=== PATIENT | female | born 1975 | race Hispanic/Latino ===

== ENCOUNTER 2025-05-07 17:50 | Inpatient (IN) | payer BC ==
[~2025-05-07] VITALS: Ht 157.5 cm; Wt 97.5 kg
[2025-05-07 18:24] LABS: IMMATURE GRANULOCYTE ABSOLUTE 0.15 K/uL (0-1); NUCLEATED RED BLOOD CELLS 0.0 % (0.0-0.19); PLATELET COUNT (AUTO) 261 K/uL (130-400); RED BLOOD CELL COUNT(AUTO) 4.02 MIL/uL (4.00-5.50); RED CELL DISTRIBUTION WIDTH 13.4 % (11.0-15.5); WHITE BLOOD COUNT (AUTO) 18.4 K/uL (4.8-10.8)
[2025-05-07 18:31] LABS: CREATININE 0.8 mg/dL (0.5-1.0); GLOMERULAR FILTR. RATE CALC 89.0 mL/min (>90); GLUCOSE,RANDOM 196.0 mg/dL (70-105); SODIUM SERUM 136.0 mmol/L (136-145); UREA NITROGEN, BLOOD 9.0 mg/dL (7-18)
--- NOTE | 2025-05-07 18:55 | HMCIMG ---
EXAM: CR Chest, 1 View. CLINICAL HISTORY: sob/cough r/o pna COMPARISON: None provided. FINDINGS: Multifocal pneumonia throughout the left lung and within the mid to lower right lung. No pleural effusion or pneumothorax. Mild cardiomegaly. Mild central pulmonary vascular congestion. IMPRESSION: 1. Multifocal pneumonia in the left lung and mid to lower right lung. /Dawson
[2025-05-07 18:57] VITALS: PULSE 89; RESP 17
--- NOTE | 2025-05-07 19:01 | ERN ---
General Chief Complaint: Cough Stated Complaint: COUGH Time Seen by MD: 17:54 Time Seen by Midlevel: 17:54 Source: patient History of Present Illness Initial Comments The patient is a 50-year-old female with no significant past medical history presenting to the emergency department for evaluation of cough and shortness of breath that has been ongoing for a proximally one week. Her symptoms initially started with abdominal pain, diarrhea, and a sore throat. She was diagnosed with strep and started on Augmentin two days ago. Today she reports feeling worse so she decided to report to the freestanding ER where she was found to have bilateral pneumonia. She was given an unknown antibiotic and steroid and was urged to be admitted however the patient decided to leave against medical advice. Her daughter convinced her to report to the ER after being discharged so she presented here for further evaluation. Allergies: Coded Allergies: No Known Drug Allergies (Unverified Allergy, Unknown, 05/07/25) Past Medical History Past Medical History: No Pertinent History Past Surgical History: Unknown ROS Dictation CONSTITUTIONAL: Negative except for HPI HEAD/FACE: Negative except for HPI EENT: Negative except for HPI RESPIRATORY: Negative except for HPI GASTROINTESTINAL/ABDOMINAL: Negative except for HPI GENITOURINARY: Negative except for HPI MUSCULOSKELETAL: Negative except for HPI INTEGUMENTARY: Negative except for HPI NEUROLOGICAL/PSYCH: Negative except for HPI HEMATOLOGIC/LYMPHATIC: Negative except for HPI All Systems Negative, Except as noted above. 13 point review of systems assessed and all negative except for above. Physical Exam Physical Exam Dictation Vital Signs reviewed General Appearance: Alert, oriented x 3, no acute distress, well developed, nourished. Head and Face: non-traumatic. Eyes: PERRL, pink conjunctivas, eyelid no trauma, anterior chamber with arcus senilis. Ears: Pinnas intact and no signs of trauma or erythema ear canals clear and no discharge TM no erythema Nose: No discharge, no bleeding. Oropharynx: Mouth normal, tongue pink, pharynx clear,no erythema, tonsils no exudates, no abscesses noted, mucous membrane moist Neck: Supple, non-tender, no thyromegaly, no masses, no JVD, no bruits Breast:Deferred Chest:No tenderness, no crepitus, no paradoxical movement, no retractions Lungs:Clear, well-ventilated, symmetric, no rales, no wheezing, no rhonchi, no stridor, good breath sounds bilaterally Heart: Regular rate, regular rhythm, no murmur, no gallops Vascular: no peripheral edema, Abdomen: Soft, positive bowel sounds, nondistended, no guarding, nontender, no rebound, no masses no hepatomegaly, no splenomegaly, no Gupta's sign, no hernias. Rectal: Deferred Genital: Deferred Neurological: Normal speech, motor function intact, sensory function intact Musculoskeletal: Neck nontender, full range of motion, back nontender, full range of motion, Extremities: nontender, full range of motion Skin: Color pink, dry, no turgor, no rash, no lacerations, no abrasions, no contusions. Lymphatic: Deferred Results Laboratory and Microbiology Lab and Micro Result Laboratory Tests Test 05/07/25 18:15 White Blood Count 18.4 K/uL (4.8-10.8) H Red Blood Count 4.02 MIL/uL (4.00-5.50) Hemoglobin 11.3 g/dL (12.0-16.0) L Hematocrit 33.9 % (36-48) L Mean Corpuscular Volume 84.3 fL (79-99) Mean Corpuscular Hemoglobin 28.1 pg (27.0-33.0) Mean Corpuscular Hemoglobin Concent 33.3 g/dL (32.0-36.0) Red Cell Distribution Width 13.4 % (11.0-15.5) Platelet Count 261 K/uL (130-400) Mean Platelet Volume 10.7 fL (7.5-10.5) H Immature Granulocyte % (Auto) 0.8 % (0-1) Neutrophils (%) (Auto) 96.1 % (40.0-77.0) H Lymphocytes (%) (Auto) 2.2 % (21.0-51.0) L Monocytes (%) (Auto) 0.5 % (3.0-13.0) L Eosinophils (%) (Auto) 0.2 % (0.0-8.0) Basophils (%) (Auto) 0.2 % (0.0-5.0) Neutrophils # (Auto) 17.6 K/uL (1.8-7.7) H Lymphocytes # (Auto) 0.4 K/uL (1.0-4.8) L Monocytes # (Auto) 0.1 K/uL (0.1-1.0) Eosinophils # (Auto) 0.04 K/uL (0.00-0.70) Basophils # (Auto) 0.04 K/uL (0.00-0.20) Absolute Immature Granulocyte (auto 0.15 K/uL (0-1) Nucleated Red Blood Cells 0.0 % (0.0-0.19) White Cell Morphology Comment See comments Sodium Level 136 mmol/L (136-145) Potassium Level 3.6 mmol/L (3.5-5.1) Chloride Level 99 mmol/L (101-111) L Carbon Dioxide Level 29 mmol/L (21-32) Blood Urea Nitrogen 9 mg/dL (7-18) Creatinine 0.8 mg/dL (0.5-1.0) Glomerular Filtration Rate Calc 89 mL/min (>90) Random Glucose 196 mg/dL (70-105) H Lactic Acid Level 1.3 mmol/L (0.8-2.5) Total Calcium 8.6 mg/dL (8.5-10.1) Labs Reviewed?: Yes MDM MDM: Differential diagnosis: Pneumonia, failure of outpatient therapy, pleural effusion Rationale: Tests considered and ordered secondary to shared decision making include: Previous outside records reviewed: Old ER visits. Risk of complication and/or morbidity or mortality of patient management: None Medications-Per medication reconciliation Need for hospitalization: Patient does meet criteria for hospitalization. Need for emergency major/minor surgery: No There are no social concerns with this patient. Prescription drug management Prescriptions will include symptomatic care Patient's prior external medical records from other ER visits were reviewed by me as indicated. Prior testing and results from previous visits were reviewed. Prior tests were taken into account with medical decision making and resource utilization, independent historian/historians were used to obtain complete medical history. I independently interpreted the test that were performed, results were reviewed by me and considered findings on radiology if ordered. Medical management and examination interpretation discussions were had by me with other qualified healthcare professionals as indicated for the patient's care. ED Course Orders Procedure Category Date Status Time Cbc With Differential LAB 05/07/25 Complete 18:03 Basic Metabolic Panel LAB 05/07/25 Complete 18:03 Lactic Acid LAB 05/07/25 Complete 18:03 Chest 1vw RAD 05/07/25 Resulted 18:03 Ceftriaxone 1g Vial PHA 05/07/25 In Process (Rocephine 1g Inj) 19:00 Blood Cult ADRIAN 05/07/25 Logged 18:42 Ipratropium/Albuterol PHA 05/07/25 In Process Neb (Duoneb) 19:00 Current Medications Medications (Trade) Dose Ordered Sig/Emely Route PRN Reason Start Time Stop Time Status Last Admin Dose Admin Albuterol (DUOneb) 1 UDVIAL ONCE ONCE IH 05/07/25 19:00 05/07/25 19:01 05/07/25 18:57 Ceftriaxone Sodium (ROCEphine 1G INJ) 1 gm ONCE ONCE IVPB 05/07/25 19:00 05/07/25 19:01 Vital Signs Date Time Temp Pulse Resp B/P (MAP) Pulse Ox O2 Delivery O2 Flow Rate FiO2 05/07/25 18:46 97.3 94 20 115/60 94 Room Air* 0 21 05/07/25 17:54 98.6 101 18 128/73 98 Nasal Cannula 0 DX & DISP Disposition: Inpatient Departure Impression: Primary Impression: Bilateral pneumonia Additional Impressions: Leukocytosis, Failure of outpatient treatment Condition: Stable Referrals: SELF,REFERRAL (PCP) Time of Disposition: 19:01 I have reviewed the case, and I agree with, Diagnosis and Plan I performed the substantive portion of the visit. I have reviewed and personally made and approve the management plan that is documented in the note by myself or the CHETNA. I acknowledge for responsibility for the patient's management plan. MAZIN DOUGLAS May 07, 2025 19:01
--- NOTE | 2025-05-07 19:31 | HP ---
[facility] HISTORY AND PHYSICAL Date of Service: May 07, 2025 Time of Service: 19:17 PCP: Self-referral HISTORY OF PRESENT ILLNESS: This is a 50-year-old female with no pertinent medical history who presents to the ED for complaints of dry cough , fever and shortness of breaths which started two days ago. Patient states her condition started one week ago having symptoms of diarrhea, and headache which she went to see her PCP and was prescribed with Zofran, omeprazole, nystatin and Augmentin q.12 for seven days and patient reports she started feeling better however two days ago he noticed having dry cough, fever and chills last night and shortness of breath today.Patient reports she went to a free standing ER and was given steroids shot and IVF and IV antibiotic and recommended for admission and as per patient she refused and decided to go home .On their way home she still feel the same and maurice garza convinced her to get admitted so she decided to come to this ER facility ,thus prompted this admission. Seen and examined patient in the ER awake,alert and coherent ,in no apparent distress.Patient denies chest pain,palpitation,nausea,vomiting and abdominal pain. Latest vital signs temperature 97.3, heart rate 89, blood pressure 115/60 saturation 94% on room air. Labs: WBC 18, hemoglobin 11, hematocrit 33 platelet count 261. Chloride 99, random glucose 196 lactic acid 1.3 the rest of the chemistries normal. Chest x-ray result revealed multifocal pneumonia in the left lung and mid to lower right lung. While in the ER patient received albuterol and Rocephin 1 g IV. We will admit patient for further medical management. REVIEW OF SYSTEMS CONSTITUTIONAL: Denies fevers, chills, or night sweats. No unintentional weight loss reported. NEUROLOGICAL: Denies headache, amaurosis fugax, motor weakness, sensory deficit, vertigo/spinning sensation, gait abnormalities, or tremors. ENT: No hearing loss, otalgia, otorrhea, rhinitis, rhinorrhea, hoarseness, or sore throat. CARDIOVASCULAR: Denies any exertional angina, dyspnea on exertion, orthopnea, paroxysmal nocturnal dyspnea, palpitations, life-threatening arrhythmias, claudication. PULMONARY: Dry cough and shortness of breaths Deniesphlegm/sputum, hemoptysis, pleuritic chest pain. SLEEP: Denies morning headaches, daytime somnolence or napping. Denies difficulty falling asleep, staying asleep, waking from sleep. Denies knowledge of snoring. GASTROINTESTINAL: Denies any type of dysphagia to either liquids or solids. Denies nausea, vomiting, pyrosis, early satiety, abdominal pain, diarrhea, constipation, or changes in stool consistency or caliber. Denies coffee-ground emesis, hematemesis, hematochezia, or melanotic stools. GENITOURINARY: Denies frequency, urgency, nocturia, hematuria or incontinence (Storage/Irritative symptoms.) Low urinary stream, straining to void, urinary intermittency or hesitancy, splitting of the voiding stream, terminal dribbling. ENDOCRINOLOGIC: Denies polyuria, polydipsia, polyphagia or heat/cold intolerances. HEMATOLOGIC: Denies thrombophilia/previous clots, or coagulopathy/bleeding disorders. ONCOLOGIC: Denies personal history of malignancy. DERMATOLOGIC: Denies rashes or pruritus. PSYCHIATRIC: Denies any suicidal or homicidal ideation. Denies hallucinations. PAST MEDICAL HISTORY: [ Patient denies] PAST SURGICAL HISTORY: [ Cholecystectomy] PAST SOCIAL HISTORY: [ Patient lives with daughter. Patient denies cigarette and recreational drug use admits to drinking two glass of mixed drinks per month ] FAMILY HISTORY: [Noncontributory ] Coded Allergies: No Known Drug Allergies (Unverified Allergy, Unknown, 05/07/25) PHYSICAL EXAM GENERAL APPEARANCE: The patient is awake, alert, and oriented, in no acute cardiopulmonary distress. NEUROLOGICAL: Cranial nerves II-XII grossly intact. Motor is 5/5 in bilateral upper and lower extremities proximal to distal. No sensory deficits. HEENT: Face is symmetric. Pupils are equal and reactive. Extraocular movements are intact. NECK: Supple. No JVD. No thyromegaly. No submental, submandibular, pre- /postauricular, occipital or supraclavicular lymphadenopathy. CHEST: Normal chest expansion. No Telemetry. LUNGS: Absence of any rales, rhonchi or any wheezing. CARDIOVASCULAR: Regular. S1 and S2 normal. No appreciable rubs, murmurs or gallops. ABDOMEN: Soft, nontender, and nondistended. There is no rebound, voluntary guarding, or rigidity. : Deferred. No Leija. EXTREMITIES: Non-edematous and not cyanotic. No clubbing. Good capillary refill. SKIN: No skin breakdown. Vital Sign (Last 24 Hours) 05/07/25 05/07/25 18:46 18:57 Temp 97.3 Pulse 89 Resp 17 B/P (MAP) 115/60 Pulse Ox 94 O2 Delivery Room Air* O2 Flow Rate 0 FiO2 21 LABS: Laboratory: Test 05/07/25 18:15 Range/Units White Blood Count 18.4 H 4.8-10.8 K/uL Red Blood Count 4.02 4.00-5.50 MIL/uL Hemoglobin 11.3 L 12.0-16.0 g/dL Hematocrit 33.9 L 36-48 % Mean Corpuscular Volume 84.3 79-99 fL Mean Corpuscular Hemoglobin 28.1 27.0-33.0 pg Mean Corpuscular Hemoglobin Concent 33.3 32.0-36.0 g/dL Red Cell Distribution Width 13.4 11.0-15.5 % Platelet Count 261 130-400 K/uL Mean Platelet Volume 10.7 H 7.5-10.5 fL Immature Granulocyte % (Auto) 0.8 0-1 % Neutrophils (%) (Auto) 96.1 H 40.0-77.0 % Lymphocytes (%) (Auto) 2.2 L 21.0-51.0 % Monocytes (%) (Auto) 0.5 L 3.0-13.0 % Eosinophils (%) (Auto) 0.2 0.0-8.0 % Basophils (%) (Auto) 0.2 0.0-5.0 % Neutrophils # (Auto) 17.6 H 1.8-7.7 K/uL Lymphocytes # (Auto) 0.4 L 1.0-4.8 K/uL Monocytes # (Auto) 0.1 0.1-1.0 K/uL Eosinophils # (Auto) 0.04 0.00-0.70 K/uL Basophils # (Auto) 0.04 0.00-0.20 K/uL Absolute Immature Granulocyte (auto 0.15 0-1 K/uL Nucleated Red Blood Cells 0.0 0.0-0.19 % White Cell Morphology Comment See comments Sodium Level 136 136-145 mmol/L Potassium Level 3.6 3.5-5.1 mmol/L Chloride Level 99 L 101-111 mmol/L Carbon Dioxide Level 29 21-32 mmol/L Blood Urea Nitrogen 9 7-18 mg/dL Creatinine 0.8 0.5-1.0 mg/dL Glomerular Filtration Rate Calc 89 >90 mL/min Random Glucose 196 H 70-105 mg/dL Lactic Acid Level 1.3 0.8-2.5 mmol/L Total Calcium 8.6 8.5-10.1 mg/dL DIAGNOSTICS / RADIOLOGY: [ ] ASSESSMENT: Community-acquired pneumonia POA Acute leukocytosis POA Hyperglycemia POA Acute normocytic normochromic anemia POA PLAN: We will admit patient in medical surgical We will start on regular diet We will start on Rocephin IV and azithromycin IV for broad-spectrum coverage We will start on famotidine 20 mg p.o. b.i.d. for GI prophylaxis We will replace electrolytes as needed per protocol May give DuoNeb treatment p.r.n. cough and shortness of breaths We will add prn medication for fever,pain,cough , nausea and vomiting We will request labs in am We will follow up blood culture result We will request urinalysis Further orders to follow depending on above results Case discussed with attending physician and came up with above treatment and plan of care. ADVANCED CARE PLANNING 1. Which of the following were discussed? Hospice Care - No Therapeutic options - Yes Advance Directives - No Other discussions - 2. Discussed with who? Patient 3. Voluntary nature of this service was explained to the patient? Yes 4. Amount of time spent - __20 5. Reviewed by Physician? (if this service was performed by NPP) Yes Patient seen and examined by me. Agree with note by MECHANICAL DRAWING TEACHER SEE ADDITIONAL ORDERS PER CHART DISCUSSED WITH NURSING STAFF MARIAN LIMON ACID OPERATOR May 07, 2025 19:31
[2025-05-07 19:58] LABS: APPEARANCE,URINE CLEAR (CLEAR); GLUCOSE, URINE (UA) NEGATIVE (NEGATIVE); LEUKOCYTE ESTERASE ,URINE 75 Leu/uL (NEGATIVE); NITRATE,URINE NEGATIVE (NEGATIVE); OCCULT BLOOD,URINE +- (TRACE) (NEGATIVE)
[2025-05-07 20:04] LABS: ADD UA MICROSCOPIC YES
[2025-05-07] MEDS: FAMOTIDINE 20MG TAB PO SCH (20:06)
[2025-05-07 20:10] LABS: SQUAMOUS EPITHELIAL CELL,UR RARE /HPF (0-2)
[2025-05-07 22:26] VITALS: PULSE 84; RESP 18; O2SAT 97
[2025-05-07 22:29] VITALS: PULSE 86; RESP 18
[2025-05-07 22:55] VITALS: BP 130/73; PULSE 93; RESP 18; TEMP 98.5
[2025-05-08] VITALS (16 sets, daily range): BP systolic 112–143; BP diastolic 53–91; PULSE 83–113; RESP 16–20; TEMP 97.7–98.5; O2SAT 93–98
[2025-05-08] MEDS: AZITHROMYCIN 500MG+NS 250ML 250 ML IV SCH (00:50)
[2025-05-08 05:28] LABS: IMMATURE GRANULOCYTE ABSOLUTE 0.06 K/uL (0-1); NUCLEATED RED BLOOD CELLS 0.0 % (0.0-0.19); PLATELET COUNT (AUTO) 252 K/uL (130-400); RED BLOOD CELL COUNT(AUTO) 3.69 MIL/uL (4.00-5.50); RED CELL DISTRIBUTION WIDTH 13.6 % (11.0-15.5); WHITE BLOOD COUNT (AUTO) 14.2 K/uL (4.8-10.8)
[2025-05-08 06:02] LABS: ASPARTATE AMINOTRANSFERASE 23.0 U/L (10-37); CREATININE 0.7 mg/dL (0.5-1.0); GLOMERULAR FILTR. RATE CALC 104.0 mL/min (>90); GLUCOSE,RANDOM 177.0 mg/dL (70-105); SODIUM SERUM 138.0 mmol/L (136-145); TOTAL PROTEIN, SERUM 6.6 g/dL (6.0-8.3); UREA NITROGEN, BLOOD 10.0 mg/dL (7-18)
--- NOTE | 2025-05-08 11:25 | NUR ---
DCP: HOME Pt currently lives with dgt Sylvia Obrien [phone]. pt does not have any DME, home health, or provider services. Pt is able to complete ADLs independently. PCP is Dr. Keiko Reyes and uses [facility] for any RX needs. At [place] pt will want to go home and family can assist with transportation. Addendum: 05/08/25 at 1128 by KIRAN SNYDER SS Amended: Links added.
[2025-05-08] MEDS: guaiFENesin-DM 200/20MG 10ML PO PRN (12:19)
--- NOTE | 2025-05-08 12:28 | PN ---
[facility] PROGRESS NOTE Date of Service: May 08, 2025 Time of Service: 12:25 Attending doctor Mj SUBJECTIVE: [ 05/07 This is a 50-year-old female with no pertinent medical history who presents to the ED for complaints of dry cough , fever and shortness of breaths which started two days ago. Patient states her condition started one week ago having symptoms of diarrhea, and headache which she went to see her PCP and was prescribed with Zofran, omeprazole, nystatin and Augmentin q.12 for seven days and patient reports she started feeling better however two days ago he noticed having dry cough, fever and chills last night and shortness of breath today.Patient reports she went to a free standing ER and was given steroids shot and IVF and IV antibiotic and recommended for admission and as per patient she refused and decided to go home .On their way home she still feel the same and daughter convinced her to get admitted so she decided to come to this ER facility ,thus prompted this admission. Seen and examined patient in the ER awake,alert and coherent ,in no apparent distress.Patient denies chest pain,palpitation,nausea,vomiting and abdominal pain. Latest vital signs temperature 97.3, heart rate 89, blood pressure 115/60 saturation 94% on room air. Labs: WBC 18, hemoglobin 11, hematocrit 33 platelet count 261. Chloride 99, random glucose 196 lactic acid 1.3 the rest of the chemistries normal. Chest x-ray result revealed multifocal pneumonia in the left lung and mid to lower right lung. While in the ER patient received albuterol and Rocephin 1 g IV. We will admit patient for further medical management. 05/08 patient was seen by nurse practitioner and physician during rounding in room 313. Patient's chest x-ray came back positive for pneumonia. Patient continues to be on Rocephin and azithromycin. WBC is trending down today is 14.2. UA was positive for leukocytosis. We are pending blood urine and sputum culture at this moment. We will continue to monitor patient in the meantime. A.m. labs] REVIEW OF SYSTEMS CONSTITUTIONAL: Denies fevers, chills, or night sweats. No unintentional weight loss reported. NEUROLOGICAL: Denies headache, amaurosis fugax, motor weakness, sensory deficit, vertigo/spinning sensation, gait abnormalities, or tremors. ENT: No hearing loss, otalgia, otorrhea, rhinitis, rhinorrhea, hoarseness, or sore throat. CARDIOVASCULAR: Denies any exertional angina, dyspnea on exertion, orthopnea, paroxysmal nocturnal dyspnea, palpitations, life-threatening arrhythmias, claudication. PULMONARY: Dry cough and shortness of breaths Denies phlegm/sputum, hemoptysis, pleuritic chest pain. SLEEP: Denies morning headaches, daytime somnolence or napping. Denies difficulty falling asleep, staying asleep, waking from sleep. Denies knowledge of snoring. GASTROINTESTINAL: Denies any type of dysphagia to either liquids or solids. Denies nausea, vomiting, pyrosis, early satiety, abdominal pain, diarrhea, constipation, or changes in stool consistency or caliber. Denies coffee-ground emesis, hematemesis, hematochezia, or melanotic stools. GENITOURINARY: Denies frequency, urgency, nocturia, hematuria or incontinence (Storage/Irritative symptoms.) Low urinary stream, straining to void, urinary intermittency or hesitancy, splitting of the voiding stream, terminal dribbling. ENDOCRINOLOGIC: Denies polyuria, polydipsia, polyphagia or heat/cold intolerances. HEMATOLOGIC: Denies thrombophilia/previous clots, or coagulopathy/bleeding disorders. ONCOLOGIC: Denies personal history of malignancy. DERMATOLOGIC: Denies rashes or pruritus. PSYCHIATRIC: Denies any suicidal or homicidal ideation. Denies hallucinations. PHYSICAL EXAM GENERAL APPEARANCE: The patient is awake, alert, and oriented, in no acute cardiopulmonary distress. NEUROLOGICAL: Cranial nerves II-XII grossly intact. Motor is 5/5 in bilateral upper and lower extremities proximal to distal. No sensory deficits. HEENT: Face is symmetric. Pupils are equal and reactive. Extraocular movements are intact. NECK: Supple. No JVD. No thyromegaly. No submental, submandibular, pre- /postauricular, occipital or supraclavicular lymphadenopathy. CHEST: Normal chest expansion. No Telemetry. LUNGS: Absence of any rales, rhonchi or any wheezing. CARDIOVASCULAR: Regular. S1 and S2 normal. No appreciable rubs, murmurs or gallops. ABDOMEN: Soft, nontender, and nondistended. There is no rebound, voluntary guarding, or rigidity. : Deferred. No Leija. EXTREMITIES: Non-edematous and not cyanotic. No clubbing. Good capillary refill. SKIN: No skin breakdown. Vital Signs (last 8hr) Date Time Temp Pulse Resp B/P (MAP) Pulse Ox O2 Delivery O2 Flow Rate FiO2 05/08/25 12:00 98.2 113 19 122/63 92 Room Air 05/08/25 10:58 103 18 05/08/25 10:57 103 18 N/A Room Air 05/08/25 08:00 97.9 84 19 112/53 95 Room Air 05/08/25 07:41 89 18 05/08/25 07:40 89 18 N/A Room Air 05/08/25 05:13 97.7 89 18 123/76 96 Nasal Cannula 2.0 LABS: Laboratory: Test 05/08/25 04:50 05/07/25 18:24 05/07/25 18:15 Range/Units White Blood Count 14.2 H 4.8-10.8 K/uL Red Blood Count 3.69 L 4.00-5.50 MIL/uL Hemoglobin 10.4 L 12.0-16.0 g/dL Hematocrit 31.3 L 36-48 % Mean Corpuscular Volume 84.8 79-99 fL Mean Corpuscular Hemoglobin 28.2 27.0-33.0 pg Mean Corpuscular Hemoglobin Concent 33.2 32.0-36.0 g/dL Red Cell Distribution Width 13.6 11.0-15.5 % Platelet Count 252 130-400 K/uL Mean Platelet Volume 10.9 H 7.5-10.5 fL Immature Granulocyte % (Auto) 0.4 0-1 % Neutrophils (%) (Auto) 95.9 H 40.0-77.0 % Lymphocytes (%) (Auto) 2.8 L 21.0-51.0 % Monocytes (%) (Auto) 0.8 L 3.0-13.0 % Eosinophils (%) (Auto) 0.0 0.0-8.0 % Basophils (%) (Auto) 0.1 0.0-5.0 % Neutrophils # (Auto) 13.6 H 1.8-7.7 K/uL Lymphocytes # (Auto) 0.4 L 1.0-4.8 K/uL Monocytes # (Auto) 0.1 0.1-1.0 K/uL Eosinophils # (Auto) 0.00 0.00-0.70 K/uL Basophils # (Auto) 0.02 0.00-0.20 K/uL Absolute Immature Granulocyte (auto 0.06 0-1 K/uL Nucleated Red Blood Cells 0.0 0.0-0.19 % Sodium Level 138 136-145 mmol/L Potassium Level 3.6 3.5-5.1 mmol/L Chloride Level 102 101-111 mmol/L Carbon Dioxide Level 28 21-32 mmol/L Blood Urea Nitrogen 10 7-18 mg/dL Creatinine 0.7 0.5-1.0 mg/dL Glomerular Filtration Rate Calc 104 >90 mL/min Random Glucose 177 H 70-105 mg/dL Total Calcium 8.4 L 8.5-10.1 mg/dL Magnesium Level 2.30 1.80-2.40 mg/dL Total Bilirubin 0.5 0.2-1.0 mg/dL Aspartate Amino Transf (AST/SGOT) 23 10-37 U/L Alanine Aminotransferase (ALT/SGPT) 56 12-78 U/L Alkaline Phosphatase 148 H 50-136 U/L Total Protein 6.6 6.0-8.3 g/dL Albumin 2.4 L 3.5-5.0 g/dL Urine Color LIGHT-YELLOW YELLOW Urine Appearance CLEAR CLEAR Urine pH 6.5 5.0-8.0 Urine Specific [place] 1.009 1.001-1.031 Urine Protein 10 H NEGATIVE mg/dL Urine Glucose (UA) NEGATIVE NEGATIVE mg/dL Urine Ketones NEGATIVE NEGATIVE mg/dL Urine Occult Blood +- (TRACE) H NEGATIVE Urine Nitrate NEGATIVE NEGATIVE Urine Bilirubin NEGATIVE NEGATIVE mg/dL Urine Urobilinogen 0.2 0.2-1.0 mg/dL Urine Leukocyte Esterase 75 H NEGATIVE [place]/uL Urine RBC 0-1 0-1 /HPF Urine WBC 2-5 H 0-1 /HPF Urine Squamous Epithelial Cells RARE 0-2 /HPF Urine Bacteria None None Seen /HPF White Cell Morphology Comment See comments Hemoglobin A1c 5.9 4.0-6.0 % Estimated Average Glucose (eAG) 123 70-126 mg/dL Lactic Acid Level 1.3 0.8-2.5 mmol/L Current Medications Medications (Trade) Dose Ordered Sig/Emely Route PRN Reason Start Time Stop Time Status Last Admin Dose Admin Acetaminophen (TYLenol 325MG TAB) 650 mg Q4H PRN PO MILD PAIN (1-3) 05/07/25 19:30 06/06/25 19:29 Acetaminophen (TYLenol 325MG TAB) 650 mg Q6H PRN PO TEMPERATURE GREATER THAN 101.5 05/07/25 19:30 06/06/25 19:29 Albuterol (DUOneb) 1 udvial [id number] IH 05/07/25 22:00 06/06/25 21:59 05/08/25 10:58 1 UDVIAL Azithromycin 250 ml @ 250 mls/hr Q24H IV 05/08/25 00:00 05/18/25 00:00 05/08/25 00:50 250 MLS/HR Ceftriaxone Sodium 1 gm/ Sodium Chloride 50 ml @ 100 mls/hr Q24H IV 05/08/25 09:00 05/07/25 19:21 DC Ceftriaxone Sodium (ROCEphine 1G INJ) 1 gm DAILY IVPB 05/08/25 09:00 05/18/25 08:59 05/08/25 10:06 1 GM Famotidine (Pepcid 20mg Tab) 20 mg BID PO 05/07/25 21:00 06/06/25 20:59 05/08/25 10:06 20 MG Guaifenesin/ Dextromethorphan (RobiTUSSin DM 200/20MG 10ML) 10 ml Q4H PRN PO COUGH 05/07/25 19:30 06/06/25 19:29 05/08/25 12:19 10 ML Ondansetron HCl (zoFRAN 4MG INJ) 4 mg Q6H PRN IV NAUSEA/VOMITING 05/07/25 19:30 06/06/25 19:29 DIAGNOSTICS / RADIOLOGY: [ ] ASSESSMENT: Community-acquired pneumonia POA Acute leukocytosis POA Hyperglycemia POA Acute normocytic normochromic anemia POA PLAN: Continue in medical surgical Continue regular diet Continue Rocephin IV and azithromycin IV for broad-spectrum coverage Continue famotidine 20 mg p.o. b.i.d. for GI prophylaxis We will replace electrolytes as needed per protocol May give DuoNeb treatment p.r.n. cough and shortness of breaths We will add prn medication for fever,pain,cough , nausea and vomiting A.m. labs Urinalysis positive for leukocytosis Blood culture pending Sputum culture pending Urine culture pending Further orders to follow depending on above results Case discussed with attending physician and came up with above treatment and plan of care. ATTESTATION BY PHYSICIAN I have seen and examined the patient. I reviewed the documentation, medical decision making, and treatment plan as noted by the mid-level provider above. I agree with the findings and plan of care. TUYET THIBODEAUX MD, KATARZYNA B PROJECT ACCOUNT MANAGER May 08, 2025 12:28
[2025-05-08] MEDS: PoTASSium chloRIDE 20MEQ ER 20 MEQ ERTAB PO ONE (13:48)
[2025-05-08] MEDS: SODIUM CHLORIDE 3% FOR INHALATION 4 ML/AMP VIAL.NEB IH ONE (13:52)
[2025-05-09] VITALS (17 sets, daily range): BP systolic 128–144; BP diastolic 69–88; PULSE 88–108; RESP 18–22; TEMP 97.6–99; O2SAT 93–96
[2025-05-09 06:00] LABS: IMMATURE GRANULOCYTE ABSOLUTE 0.35 K/uL (0-1); NUCLEATED RED BLOOD CELLS 0.0 % (0.0-0.19); PLATELET COUNT (AUTO) 321 K/uL (130-400); RED BLOOD CELL COUNT(AUTO) 3.40 MIL/uL (4.00-5.50); RED CELL DISTRIBUTION WIDTH 14.0 % (11.0-15.5); WHITE BLOOD COUNT (AUTO) 18.9 K/uL (4.8-10.8)
[2025-05-09 06:12] LABS: ASPARTATE AMINOTRANSFERASE 22.0 U/L (10-37); CREATININE 0.8 mg/dL (0.5-1.0); GLOMERULAR FILTR. RATE CALC 89.0 mL/min (>90); GLUCOSE,RANDOM 137.0 mg/dL (70-105); SODIUM SERUM 140.0 mmol/L (136-145); TOTAL PROTEIN, SERUM 6.5 g/dL (6.0-8.3); UREA NITROGEN, BLOOD 13.0 mg/dL (7-18)
[2025-05-09 10:28] LABS: % IRON SATURATION 26.9 % (22-44); IRON, SERUM 52.0 mcg/dL (50-170)
[2025-05-09] MEDS ORDERED: MAGNESIUM 2GM PREMIX 50ML 50 ML IV PRN (10:30)
[2025-05-09] MEDS: Solu-medROL 40MG VIAL IVP SCH (14:00)
--- NOTE | 2025-05-09 15:51 | PN ---
[facility] PROGRESS NOTE Date of Service: May 09, 2025 Time of Service: 15:49 SUBJECTIVE: [ 05/07 This is a 50-year-old female with no pertinent medical history who presents to the ED for complaints of dry cough , fever and shortness of breaths which started two days ago. Patient states her condition started one week ago having symptoms of diarrhea, and headache which she went to see her PCP and was prescribed with Zofran, omeprazole, nystatin and Augmentin q.12 for seven days and patient reports she started feeling better however two days ago he noticed having dry cough, fever and chills last night and shortness of breath today.Patient reports she went to a free standing ER and was given steroids shot and IVF and IV antibiotic and recommended for admission and as per patient she refused and decided to go home .On their way home she still feel the same and daughter convinced her to get admitted so she decided to come to this ER facility ,thus prompted this admission. Seen and examined patient in the ER awake,alert and coherent ,in no apparent distress.Patient denies chest pain,palpitation,nausea,vomiting and abdominal pain. Latest vital signs temperature 97.3, heart rate 89, blood pressure 115/60 saturation 94% on room air. Labs: WBC 18, hemoglobin 11, hematocrit 33 platelet count 261. Chloride 99, random glucose 196 lactic acid 1.3 the rest of the chemistries normal. Chest x-ray result revealed multifocal pneumonia in the left lung and mid to lower right lung. While in the ER patient received albuterol and Rocephin 1 g IV. We will admit patient for further medical management. 05/08 patient was seen by nurse practitioner and physician during rounding in room 313. Patient's chest x-ray came back positive for pneumonia. Patient continues to be on Rocephin and azithromycin. WBC is trending down today is 14.2. UA was positive for leukocytosis. We are pending blood urine and sputum culture at this moment. We will continue to monitor patient in the meantime. A.m. labs] 05/09 patient remains admitted to the medical floor, comfortably in bed, alert oriented x3, getting IV antibiotics, no acute events overnight. Blood pressure 144/84, heart rate of 102, afebrile, saturating normal on room air. Denied chest pain, dry nonproductive cough. WBC remains elevated 18.9, hemoglobin 8.5, hematocrit 28.0, platelet count 341. Potassium 3.1, magnesium 2.2. We will do stool occult blood, iron panel, we will check for influenza type B and B, SARS antigen, rapid strep, GI panel, Legionella and Streptococcus antigen, pulmonary and Infectious Disease consulted, CT chest without contrast requested. Start metoprolol 12.5 mg p.o. b.i.d.. REVIEW OF SYSTEMS CONSTITUTIONAL: Denies fevers, chills, or night sweats. No unintentional weight loss reported. NEUROLOGICAL: Denies headache, amaurosis fugax, motor weakness, sensory deficit, vertigo/spinning sensation, gait abnormalities, or tremors. ENT: No hearing loss, otalgia, otorrhea, rhinitis, rhinorrhea, hoarseness, or sore throat. CARDIOVASCULAR: Denies any exertional angina, dyspnea on exertion, orthopnea, paroxysmal nocturnal dyspnea, palpitations, life-threatening arrhythmias, claudication. PULMONARY: Dry cough and shortness of breaths Denies phlegm/sputum, hemoptysis, pleuritic chest pain. SLEEP: Denies morning headaches, daytime somnolence or napping. Denies difficulty falling asleep, staying asleep, waking from sleep. Denies knowledge of snoring. GASTROINTESTINAL: Denies any type of dysphagia to either liquids or solids. Denies nausea, vomiting, pyrosis, early satiety, abdominal pain, diarrhea, constipation, or changes in stool consistency or caliber. Denies coffee-ground emesis, hematemesis, hematochezia, or melanotic stools. GENITOURINARY: Denies frequency, urgency, nocturia, hematuria or incontinence (Storage/Irritative symptoms.) Low urinary stream, straining to void, urinary intermittency or hesitancy, splitting of the voiding stream, terminal dribbling. ENDOCRINOLOGIC: Denies polyuria, polydipsia, polyphagia or heat/cold intolerances. HEMATOLOGIC: Denies thrombophilia/previous clots, or coagulopathy/bleeding disorders. ONCOLOGIC: Denies personal history of malignancy. DERMATOLOGIC: Denies rashes or pruritus. PSYCHIATRIC: Denies any suicidal or homicidal ideation. Denies hallucinations. PHYSICAL EXAM GENERAL APPEARANCE: The patient is awake, alert, and oriented, in no acute cardiopulmonary distress. NEUROLOGICAL: Cranial nerves II-XII grossly intact. Motor is 5/5 in bilateral upper and lower extremities proximal to distal. No sensory deficits. HEENT: Face is symmetric. Pupils are equal and reactive. Extraocular movements are intact. NECK: Supple. No JVD. No thyromegaly. No submental, submandibular, pre- /postauricular, occipital or supraclavicular lymphadenopathy. CHEST: Normal chest expansion. No Telemetry. LUNGS: Absence of any rales, rhonchi or any wheezing. CARDIOVASCULAR: Regular. S1 and S2 normal. No appreciable rubs, murmurs or gallops. ABDOMEN: Soft, nontender, and nondistended. There is no rebound, voluntary guarding, or rigidity. : Deferred. No Leija. EXTREMITIES: Non-edematous and not cyanotic. No clubbing. Good capillary refill. SKIN: No skin breakdown. Vital Signs (last 8hr) Date Time Temp Pulse Resp B/P (MAP) Pulse Ox O2 Delivery O2 Flow Rate FiO2 05/09/25 14:34 102 20 05/09/25 11:45 98.2 99 20 144/84 93 Room Air 21 05/09/25 11:20 101 20 N/A Room Air 21 05/09/25 11:20 101 18 05/09/25 08:00 97.5 101 20 134/77 92 Room Air 21 LABS: Laboratory: Test 05/09/25 05:35 05/07/25 18:24 05/07/25 18:15 Range/Units White Blood Count 18.9 H 4.8-10.8 K/uL Red Blood Count 3.40 L 4.00-5.50 MIL/uL Hemoglobin 9.5 L 12.0-16.0 g/dL Hematocrit 28.0 L 36-48 % Mean Corpuscular Volume 82.4 79-99 fL Mean Corpuscular Hemoglobin 27.9 27.0-33.0 pg Mean Corpuscular Hemoglobin Concent 33.9 32.0-36.0 g/dL Red Cell Distribution Width 14.0 11.0-15.5 % Platelet Count 321 # 130-400 K/uL Mean Platelet Volume 10.6 H 7.5-10.5 fL Immature Granulocyte % (Auto) 1.9 H 0-1 % Neutrophils (%) (Auto) 91.7 H 40.0-77.0 % Lymphocytes (%) (Auto) 4.4 L 21.0-51.0 % Monocytes (%) (Auto) 1.7 L 3.0-13.0 % Eosinophils (%) (Auto) 0.1 0.0-8.0 % Basophils (%) (Auto) 0.2 0.0-5.0 % Neutrophils # (Auto) 17.3 H 1.8-7.7 K/uL Lymphocytes # (Auto) 0.8 L 1.0-4.8 K/uL Monocytes # (Auto) 0.3 0.1-1.0 K/uL Eosinophils # (Auto) 0.02 0.00-0.70 K/uL Basophils # (Auto) 0.03 0.00-0.20 K/uL Absolute Immature Granulocyte (auto 0.35 0-1 K/uL Nucleated Red Blood Cells 0.0 0.0-0.19 % Sodium Level 140 136-145 mmol/L Potassium Level 3.1 L 3.5-5.1 mmol/L Chloride Level 102 101-111 mmol/L Carbon Dioxide Level 27 21-32 mmol/L Blood Urea Nitrogen 13 7-18 mg/dL Creatinine 0.8 0.5-1.0 mg/dL Glomerular Filtration Rate Calc 89 >90 mL/min Random Glucose 137 H 70-105 mg/dL Total Calcium 8.3 L 8.5-10.1 mg/dL Magnesium Level 2.20 1.80-2.40 mg/dL Iron Level 52 50-170 mcg/dL Total Iron Binding Capacity 193 L 250-450 mcg/dL Percent Iron Saturation 26.9 22-44 % Total Bilirubin 0.4 0.2-1.0 mg/dL Aspartate Amino Transf (AST/SGOT) 22 10-37 U/L Alanine Aminotransferase (ALT/SGPT) 52 12-78 U/L Alkaline Phosphatase 125 50-136 U/L Total Protein 6.5 6.0-8.3 g/dL Albumin 2.3 L 3.5-5.0 g/dL Urine Color LIGHT-YELLOW YELLOW Urine Appearance CLEAR CLEAR Urine pH 6.5 5.0-8.0 Urine Specific [place] 1.009 1.001-1.031 Urine Protein 10 H NEGATIVE mg/dL Urine Glucose (UA) NEGATIVE NEGATIVE mg/dL Urine Ketones NEGATIVE NEGATIVE mg/dL Urine Occult Blood +- (TRACE) H NEGATIVE Urine Nitrate NEGATIVE NEGATIVE Urine Bilirubin NEGATIVE NEGATIVE mg/dL Urine Urobilinogen 0.2 0.2-1.0 mg/dL Urine Leukocyte Esterase 75 H NEGATIVE [place]/uL Urine RBC 0-1 0-1 /HPF Urine WBC 2-5 H 0-1 /HPF Urine Squamous Epithelial Cells RARE 0-2 /HPF Urine Bacteria None None Seen /HPF White Cell Morphology Comment See comments Hemoglobin A1c 5.9 4.0-6.0 % Estimated Average Glucose (eAG) 123 70-126 mg/dL Lactic Acid Level 1.3 0.8-2.5 mmol/L Current Medications Medications (Trade) Dose Ordered Sig/Emely Route PRN Reason Start Time Stop Time Status Last Admin Dose Admin Acetaminophen (TYLenol 325MG TAB) 650 mg Q4H PRN PO MILD PAIN (1-3) 05/07/25 19:30 06/06/25 19:29 Acetaminophen (TYLenol 325MG TAB) 650 mg Q6H PRN PO TEMPERATURE GREATER THAN 101.5 05/07/25 19:30 06/06/25 19:29 Albuterol (DUOneb) 1 udvial [id number] IH 05/07/25 22:00 06/06/25 21:59 05/09/25 14:34 1 UDVIAL Azithromycin 250 ml @ 250 mls/hr Q24H IV 05/08/25 00:00 05/18/25 00:00 05/09/25 00:42 250 MLS/HR Ceftriaxone Sodium 1 gm/ Sodium Chloride 50 ml @ 100 mls/hr Q24H IV 05/08/25 09:00 05/07/25 19:21 DC Ceftriaxone Sodium (ROCEphine 1G INJ) 1 gm DAILY IVPB 05/08/25 09:00 05/18/25 08:59 05/09/25 09:24 1 GM Famotidine (Pepcid 20mg Tab) 20 mg BID PO 05/07/25 21:00 06/06/25 20:59 05/09/25 09:24 20 MG Guaifenesin/ Dextromethorphan (RobiTUSSin DM 200/20MG 10ML) 10 ml Q4H PRN PO COUGH 05/07/25 19:30 06/06/25 19:29 05/08/25 12:19 10 ML Magnesium Sulfate 50 ml @ 0 mls/hr PROTOCOL PRN IV hypomagnesemia 05/09/25 10:30 06/08/25 10:29 Methylprednisolone Sodium Succinate (Solu-medROL 40MG) 40 mg Q6H IVP 05/09/25 14:00 06/08/25 13:59 Ondansetron HCl (zoFRAN 4MG INJ) 4 mg Q6H PRN IV NAUSEA/VOMITING 05/07/25 19:30 06/06/25 19:29 DIAGNOSTICS / RADIOLOGY: [ ] ASSESSMENT: Community-acquired pneumonia POA Acute leukocytosis POA Hyperglycemia POA Acute normocytic normochromic anemia POA PLAN: patient remains admitted to the medical floor, comfortably in bed, alert oriented x3, getting IV antibiotics, no acute events overnight. Blood pressure 144/84, heart rate of 102, afebrile, saturating normal on room air. Denied chest pain, dry nonproductive cough. WBC remains elevated 18.9, hemoglobin 8.5, hematocrit 28.0, platelet count 341. Potassium 3.1, magnesium 2.2. We will do stool occult blood, iron panel, we will check for influenza type B and B, SARS antigen, rapid strep, GI panel, Legionella and Streptococcus antigen, pulmonary and Infectious Disease consulted, CT chest without contrast requested. Start metoprolol 12.5 mg p.o. b.i.d.. NEURO: Minimize central acting medications as possible. Fall Precautions. Well lighted room through the day and minimize interruptions through the night to prevent acute delirium. PULMONARY: Supplemental 02 as needed BiPAP as necessary, for respiratory distress Titrate Fio2 to keep Spo2 > or = 90% DuoNebs and CPT as needed IS hourly while awake for pulmonary hygiene prn Out of bed to chair as tolerated Maintain aspiration precautions at all times CARDIOVASCULAR: Follow hemodynamics. Vital signs per facility protocol GI & NUTRITION: Continue nutritional support Aspirations precautions Prokinetic agents and laxatives as needed KIDNEYS & ELECTROLYTES: Strict monitoring of intake and output Daily weights Avoid nephrotoxic agents Monitor electrolytes and replace as needed Goal urine output of 30mL/hr or 0.5mL/kg/hr Medications to be dosed according to renal function. Avoid contrast if possible ENDOCRINE: Maintain blood glucose between 100-180 at all times. Insulin sliding scale for blood glucose management Hypoglycemia and hyperglycemia protocol in place INFECTIOUS DISEASE: Trend temperature, WBC and procalcitonin level Follow cultures, deescalate antibiotics as soon as possible. Panculture if new onset fever HEMATOLOGY & COAGULATION: Monitor H&H. Keep Hgb > 7 Transfuse 1 unit of PRBC for Hgb < 7 Transfuse 1 pack of platelets of platelets < 20, 000 Watch for any signs and symptoms of bleeding SKIN: Pressure ulcer prevention per facility protocol Specialty mattress as needed ORTHO/REHAB Continue PT/OT PRN: MEDICATIONS Tylenol 650 mg po every 4 hrs for fever zofran 4 mg IV every 6 hrs for n/v Hydralazine 5 mg IV every 4 hrs systolic pressure > 160 bowel regiment: lactulose 20 gm PO BID PRN constipation Supportive measures: Continue GI and DVT prophylaxis Disposition: Pending improvement in clinical condition All questions answered time spent: > 35 min TUYET THIBODEAUX MD May 09, 2025 15:51
--- NOTE | 2025-05-09 17:56 | CONS ---
[facility] CONSULTATION NOTE Date Patient Seen: May 09, 2025 Time of Visit: 1325 Supervising Physician: Dr. Cormier Reason for Consultation: Multifocal pneumonia Inpatient Consults: BIS PROBLEM LIST: Community-acquired multifocal pneumonia Acute leukocytosis Acute normocytic normochromic anemia HPI: This is a 50-year-old female with no pertinent medical history who presents to the ED for complaints of dry cough , fever and shortness of breaths which started two days ago. Patient states her condition started one week ago having symptoms of diarrhea, and headache which she went to see her PCP and was prescribed with Zofran, omeprazole, nystatin and Augmentin q.12 for seven days and patient reports she started feeling better however two days ago he noticed having dry cough, fever and chills last night and shortness of breath today.Patient reports she went to a free standing ER and was given steroids shot and IVF and IV antibiotic and recommended for admission and as per patient she refused and decided to go home .On their way home she still feel the same and daughter convinced her to get admitted so she decided to come to this ER facility ,thus prompted this admission. Seen and examined patient in the ER awake,alert and coherent ,in no apparent distress.Patient denies chest pain,palpitation,nausea,vomiting and abdominal pain. Latest vital signs temperature 97.3, heart rate 89, blood pressure 115/60 saturation 94% on room air. Labs: WBC 18, hemoglobin 11, hematocrit 33 platelet count 261. Chloride 99, random glucose 196 lactic acid 1.3 the rest of the chemistries normal. Chest x-ray result revealed multifocal pneumonia in the left lung and mid to lower right lung. While in the ER patient received albuterol and Rocephin 1 g IV. We will admit patient for further medical management. Patient was seen and examined by bedside with family present. Patient is awake alert able to answer simple questions appropriately. Patient denies any chest pain does report some shortness of breadth upon minimal exertion. Patient currently on room air is tolerating well. Patient denies any nausea vomiting or abdominal pain. Patient is reporting a dry cough. Pulmonology were consulted for multifocal pneumonia thank you for allowing us to participate in the care of this patient we will continue to monitor while patient is in the hospital recommendations listed below Plan summary Obtain sputum culture Obtain flu swab Start patient on Solu-Medrol 40 mg b.i.d. Increase Rocephin to 2 g 6 minute walk prior to discharge Rest of the care per primary team PAST MEDICAL HX: see above PAST SURGICAL HX: noncontributory SOCIAL HISTORY: No tobacco, ETOH, or illicit drug use Coded Allergies: No Known Drug Allergies (Unverified Allergy, Unknown, 05/07/25) REVIEW OF SYSTEMS: 12 point ROS reviewed with patient. Pertinent positives mentioned above. Otherwise negative. PHYSICAL EXAM: GENERAL: alert, weak, awake oriented x 3 HEENT: EOMI, Sclera non icteric, moist mucosa NECK: Supple, no JVD, trachea midline LUNGS: Clear breath sounds bilaterally. No wheezes HEART: Regular rate and rhythm. Normal S1 and S2, without murmurs ABD: Abdomen soft, nontender. Bowel sounds present EXT: No clubbing cyanosis or edema NEURO: Alert and oriented to person, follows commands Vital Signs (last 8hr) Date Time Temp Pulse Resp B/P (MAP) Pulse Ox O2 Delivery O2 Flow Rate FiO2 05/09/25 16:00 98.2 105 19 134/79 93 Room Air 21 05/09/25 14:34 102 20 05/09/25 11:45 98.2 99 20 144/84 93 Room Air 21 05/09/25 11:20 101 20 N/A Room Air 21 05/09/25 11:20 101 18 LABS: Hematology Labs: Test 05/09/25 05:35 05/07/25 18:15 Range/Units White Blood Count 18.9 H 4.8-10.8 K/uL Red Blood Count 3.40 L 4.00-5.50 MIL/uL Hemoglobin 9.5 L 12.0-16.0 g/dL Hematocrit 28.0 L 36-48 % Mean Corpuscular Volume 82.4 79-99 fL Mean Corpuscular Hemoglobin 27.9 27.0-33.0 pg Mean Corpuscular Hemoglobin Concent 33.9 32.0-36.0 g/dL Red Cell Distribution Width 14.0 11.0-15.5 % Platelet Count 321 # 130-400 K/uL Mean Platelet Volume 10.6 H 7.5-10.5 fL Immature Granulocyte % (Auto) 1.9 H 0-1 % Neutrophils (%) (Auto) 91.7 H 40.0-77.0 % Lymphocytes (%) (Auto) 4.4 L 21.0-51.0 % Monocytes (%) (Auto) 1.7 L 3.0-13.0 % Eosinophils (%) (Auto) 0.1 0.0-8.0 % Basophils (%) (Auto) 0.2 0.0-5.0 % Neutrophils # (Auto) 17.3 H 1.8-7.7 K/uL Lymphocytes # (Auto) 0.8 L 1.0-4.8 K/uL Monocytes # (Auto) 0.3 0.1-1.0 K/uL Eosinophils # (Auto) 0.02 0.00-0.70 K/uL Basophils # (Auto) 0.03 0.00-0.20 K/uL Absolute Immature Granulocyte (auto 0.35 0-1 K/uL Nucleated Red Blood Cells 0.0 0.0-0.19 % White Cell Morphology Comment See comments Chemistry Labs: Test 05/09/25 05:35 05/07/25 18:15 Range/Units Sodium Level 140 136-145 mmol/L Potassium Level 3.1 L 3.5-5.1 mmol/L Chloride Level 102 101-111 mmol/L Carbon Dioxide Level 27 21-32 mmol/L Blood Urea Nitrogen 13 7-18 mg/dL Creatinine 0.8 0.5-1.0 mg/dL Glomerular Filtration Rate Calc 89 >90 mL/min Random Glucose 137 H 70-105 mg/dL Total Calcium 8.3 L 8.5-10.1 mg/dL Magnesium Level 2.20 1.80-2.40 mg/dL Iron Level 52 50-170 mcg/dL Total Iron Binding Capacity 193 L 250-450 mcg/dL Percent Iron Saturation 26.9 22-44 % Total Bilirubin 0.4 0.2-1.0 mg/dL Aspartate Amino Transf (AST/SGOT) 22 10-37 U/L Alanine Aminotransferase (ALT/SGPT) 52 12-78 U/L Alkaline Phosphatase 125 50-136 U/L Total Protein 6.5 6.0-8.3 g/dL Albumin 2.3 L 3.5-5.0 g/dL Hemoglobin A1c 5.9 4.0-6.0 % Estimated Average Glucose (eAG) 123 70-126 mg/dL Lactic Acid Level 1.3 0.8-2.5 mmol/L DIAGNOSTICS / RADIOLOGY RESULTS: na PLAN NEURO: Minimize central acting medications as possible. Maintain fall precautions, adequate lighting during the day PULMONARY: Supplemental 02 as needed. Maintain aspiration precautions at all times CARDIOVASCULAR: Follow hemodynamics. Vital signs per facility protocol GI & NUTRITION: Continue with nutritional support. Continue stool softeners and laxatives as needed. KIDNEYS & ELECTROLYTES: Strict monitoring of intake, output and overall fluid balance. Avoid nephrotoxic medications to the extent possible. Medications to be dosed according to renal function. Monitor electrolytes and replace as needed ENDOCRINE: Maintain blood glucose between 100-180 at all times. Hypoglycemia protocol in place INFECTIOUS DISEASE: Trend temperature, WBC and procalcitonin level Follow cultures, deescalate antibiotics as soon as possible. Panculture if new onset fever ONCOLOGY/HEMATOLOGY/COAGULATION: Monitor for s/s of bleeding Monitor hemoglobin, coagulation studies as needed SKIN: Pressure ulcer prevention per facility protocol Specialty mattress ORTHO/REHAB: Continue PT/OT Prophylaxis: Continue GI and DVT prophylaxis Code Status: Full Resuscitation Disposition: Per primary team Other: Case discussed with supervising physician plan of care agreed upon ANCA MACIAS May 09, 2025 17:56
--- NOTE | 2025-05-09 22:53 | NUR ---
RECEIVED REPORT FROM [facility] Addendum: 05/09/25 at 4754 by ADDY BANKS RN RN Amended: Links added.
[2025-05-10] VITALS (11 sets, daily range): BP systolic 131–148; BP diastolic 77–89; PULSE 98–109; RESP 18–20; TEMP 98–98.7; O2SAT 92–98
--- NOTE | 2025-05-10 05:41 | HMCIMG ---
EXAM: Non-contrast CT examination of the chest CLINICAL HISTORY: Multifocal pneumonia. TECHNIQUE: Thin collimated axial CT images of the chest were obtained with sagittal and coronal reformatted images also submitted. CT scan is done according to ALARA (As Low as Reasonably Achievable). CONTRAST USED: None. COMPARISON: None provided. FINDINGS: Severe multifocal consolidations in the bilateral lungs, compatible with multifocal pneumonia. Trace pleural effusions bilaterally, more pronounced on the left side. No pneumothorax. Trace pericardial effusion. Mild cardiomegaly. No thoracic aortic aneurysm. The pulmonary artery is normal in diameter. Reactive mediastinal lymphadenopathy. No focal thyroid abnormality. Status postcholecystectomy. Partially visualized, uncomplicated colonic diverticula. The remaining included upper abdominal organs are within normal limits. No acute or suspicious osseous abnormality. Chronic anterior wedge compression fracture with 20% height reduction at the T9 vertebral body. IMPRESSION: Severe multifocal pneumonia in the bilateral lungs. Trace pleural effusions bilaterally, more pronounced on the left side. Reactive mediastinal lymphadenopathy. Trace pericardial effusion. Mild cardiomegaly. /[place]
[2025-05-10 05:49] LABS: NUCLEATED RED BLOOD CELLS 0.0 % (0.0-0.19); PLATELET COUNT (AUTO) 359.0 K/uL (130-400); RED BLOOD CELL COUNT(AUTO) 3.51 MIL/uL (4.00-5.50); RED CELL DISTRIBUTION WIDTH 14.4 % (11.0-15.5); WHITE BLOOD COUNT (AUTO) 10.3 K/uL (4.8-10.8)
[2025-05-10 06:02] LABS: ASPARTATE AMINOTRANSFERASE 25.0 U/L (10-37); CREATININE 0.6 mg/dL (0.5-1.0); GLOMERULAR FILTR. RATE CALC 108.0 mL/min (>90); GLUCOSE,RANDOM 191.0 mg/dL (70-105); SODIUM SERUM 139.0 mmol/L (136-145); TOTAL PROTEIN, SERUM 6.6 g/dL (6.0-8.3); UREA NITROGEN, BLOOD 10.0 mg/dL (7-18)
--- NOTE | 2025-05-10 06:21 | CONS ---
INFECTIOUS DISEASE CONSULTATION DATE OF SERVICE: 05/09/2025 REQUESTING PHYSICIAN: Dr. Barker. REASON FOR CONSULTATION: Pneumonia, sepsis, antibiotic management. HISTORY OF PRESENT ILLNESS: A 50-year-old female with obesity presented to the hospital with cough, fever, and chills. The patient's symptoms started 3 days prior to presentation. The patient claims she got sick while in [place]. The patient went to her doctor and was given Augmentin without any improvement. WBC on admission 18,000. CT of the chest done shows multifocal pneumonia involving both lungs. Denied dysuria or urinary frequency. No diarrhea. No abdominal pain. No bleeding tendency. PAST MEDICAL HISTORY: Obesity. PAST SURGICAL HISTORY: Cholecystectomy. ALLERGIES: No known drug allergies. CURRENT MEDICATIONS: Include, * Azithromycin. * Ceftriaxone. * Pepcid. * Robitussin. * Tylenol. SOCIAL HISTORY: Denies alcohol, tobacco, or illicit drug use. FAMILY HISTORY: Noncontributory. REVIEW OF SYSTEMS: Greater than 10 systems were reviewed, negative except as documented above. PHYSICAL EXAMINATION: GENERAL: A young female, awake. VITAL SIGNS: Temperature 98.2, pulse 99, respirations 20, BP 144/84. EYES: No icterus. Pupils equal and reactive. HENT: No oral thrush seen. Moist oral mucosa. NECK: Supple. No JVD or thyromegaly. LUNGS: Diffuse crackles bilaterally. CARDIOVASCULAR: S1 and S2. Regular. No murmur heard. ABDOMEN: Obese, soft, nontender. Bowel sound is present. CENTRAL NERVOUS SYSTEM: Awake, alert, oriented x 3. No focal deficits. SKIN: No rashes, no itchiness. LYMPHATIC: No peripheral lymphadenopathy. BACK: No deformity, no pressure ulcer. LABORATORY DATA: Sodium 140, potassium 3.1, BUN 13, creatinine 0.8. WBC 18.9, hemoglobin 9.5, platelets 321. Urinalysis, wbc 2-5, leukocyte esterase 75. Urine culture, no growth for one day. RADIOLOGY: Chest x-ray shows pneumonia. ASSESSMENT: A 50-year-old female with obesity, admitted with cough and fever. Current problems include: * Sepsis. * Multifocal pneumonia. * Hyponatremia. * Obesity. * Anemia. PLAN: * Continue ceftriaxone. * Continue Azithromycin. * Start the patient on Solu-Medrol. * Start the patient on bronchodilator. * Continue oxygen. * Followup cultures. * Continue DVT prophylaxis. Thank you for allowing me to participate in the care of this patient. TID: [id number] RECEIPT: [id number]
[2025-05-10] MEDS: PoTASSium chloRIDE 20MEQ ER 20 MEQ ERTAB PO ONE (09:30)
--- NOTE | 2025-05-10 10:22 | EKG ---
[facility] Test Date: 2025-05-10 Test Time: 10:13:32 Pat Name: MOSES GARRIDO Department: [facility] Room: 313 1 Gender: F Fur Operator: [id number] : 1975 Requested By: TUYET THIBODEAUX Order Number: [id number] Reading MD: Mehul Carmichael Measurements Intervals [place] Rate: 99 P: 56 RI: 178 QRS: 50 QRSD: 78 T: 45 QT: 348 QTc: 446 Interpretive Statements Normal sinus rhythm No previous ECG available for comparison Electronically Signed On 05-10-2025 23:43:09 CDT by Mehul Carmichael Please click the below link to view image of tracing.
--- NOTE | 2025-05-10 10:55 | PN ---
[facility] PROGRESS NOTE Date of Service: May 10, 2025 Time of Service: 10:51 SUBJECTIVE: [ 05/07 This is a 50-year-old female with no pertinent medical history who presents to the ED for complaints of dry cough , fever and shortness of breaths which started two days ago. Patient states her condition started one week ago having symptoms of diarrhea, and headache which she went to see her PCP and was prescribed with Zofran, omeprazole, nystatin and Augmentin q.12 for seven days and patient reports she started feeling better however two days ago he noticed having dry cough, fever and chills last night and shortness of breath today.Patient reports she went to a free standing ER and was given steroids shot and IVF and IV antibiotic and recommended for admission and as per patient she refused and decided to go home .On their way home she still feel the same and daughter convinced her to get admitted so she decided to come to this ER facility ,thus prompted this admission. Seen and examined patient in the ER awake,alert and coherent ,in no apparent distress.Patient denies chest pain,palpitation,nausea,vomiting and abdominal pain. Latest vital signs temperature 97.3, heart rate 89, blood pressure 115/60 saturation 94% on room air. Labs: WBC 18, hemoglobin 11, hematocrit 33 platelet count 261. Chloride 99, random glucose 196 lactic acid 1.3 the rest of the chemistries normal. Chest x-ray result revealed multifocal pneumonia in the left lung and mid to lower right lung. While in the ER patient received albuterol and Rocephin 1 g IV. We will admit patient for further medical management. 05/08 patient was seen by nurse practitioner and physician during rounding in room 313. Patient's chest x-ray came back positive for pneumonia. Patient continues to be on Rocephin and azithromycin. WBC is trending down today is 14.2. UA was positive for leukocytosis. We are pending blood urine and sputum culture at this moment. We will continue to monitor patient in the meantime. A.m. labs] 05/09 patient remains admitted to the medical floor, comfortably in bed, alert oriented x3, getting IV antibiotics, no acute events overnight. Blood pressure 144/84, heart rate of 102, afebrile, saturating normal on room air. Denied chest pain, dry nonproductive cough. WBC remains elevated 18.9, hemoglobin 8.5, hematocrit 28.0, platelet count 341. Potassium 3.1, magnesium 2.2. We will do stool occult blood, iron panel, we will check for influenza type B and B, SARS antigen, rapid strep, GI panel, Legionella and Streptococcus antigen, pulmonary and Infectious Disease consulted, CT chest without contrast requested. Start metoprolol 12.5 mg p.o. b.i.d.. 05/10 patient remains admitted to the medical floor, blood pressure 147/89, heart rate of 98, afebrile, saturating normal on room air. Hemoglobin 9.9, hematocrit 29.4, WBC down to normal 10.3, platelet count 359. Sodium 139, potassium 3.8, BUN of 10, creatinine 0.6, random glucose level 191, hemoglobin A1c 5.9. Iron level of 52. Sputum culture no organisms seen. Blood cultures no growth after 48 hours. Urine culture negative. CT chest without contrast showing severe multifocal pneumoniae in the bilateral lungs, trace pleural effusions bilaterally, reactive mediastinal lymphadenopathy, trace pericardial effusion, mild cardiomegaly. We will continue the patient on Rocephin and azithromycin IV. Continue the patient on Solu-Medrol IV. Continue to follow Pulmonary input and recommendation. ID input noted and appreciated, continue current IV antibiotics. Pending Legionella and Streptococcus antigen. Follow serology to include influenza type a and B, SARS antigen as well as rapid strep A. We will request echocardiogram to evaluate pericardial effusion. Continue the patient on metoprolol tartrate 12.5 mg p.o. b.i.d.. Follow 12 lead EKG. During my visit patient comfortably in bed, alert oriented x3, getting IV fluids and IV antibiotics. She denies chest pain, shortness shortness for breath, no cough, no nausea, no vomiting, no abdominal pain. Plan of care discussed in detail, all questions answered, agreed and understood the information provided. REVIEW OF SYSTEMS CONSTITUTIONAL: Denies fevers, chills, or night sweats. No unintentional weight loss reported. NEUROLOGICAL: Denies headache, amaurosis fugax, motor weakness, sensory deficit, vertigo/spinning sensation, gait abnormalities, or tremors. ENT: No hearing loss, otalgia, otorrhea, rhinitis, rhinorrhea, hoarseness, or sore throat. CARDIOVASCULAR: Denies any exertional angina, dyspnea on exertion, orthopnea, paroxysmal nocturnal dyspnea, palpitations, life-threatening arrhythmias, claudication. PULMONARY: Dry cough and shortness of breaths Denies phlegm/sputum, hemoptysis, pleuritic chest pain. SLEEP: Denies morning headaches, daytime somnolence or napping. Denies difficulty falling asleep, staying asleep, waking from sleep. Denies knowledge of snoring. GASTROINTESTINAL: Denies any type of dysphagia to either liquids or solids. Denies nausea, vomiting, pyrosis, early satiety, abdominal pain, diarrhea, constipation, or changes in stool consistency or caliber. Denies coffee-ground emesis, hematemesis, hematochezia, or melanotic stools. GENITOURINARY: Denies frequency, urgency, nocturia, hematuria or incontinence (Storage/Irritative symptoms.) Low urinary stream, straining to void, urinary intermittency or hesitancy, splitting of the voiding stream, terminal dribbling. ENDOCRINOLOGIC: Denies polyuria, polydipsia, polyphagia or heat/cold intolerances. HEMATOLOGIC: Denies thrombophilia/previous clots, or coagulopathy/bleeding disorders. ONCOLOGIC: Denies personal history of malignancy. DERMATOLOGIC: Denies rashes or pruritus. PSYCHIATRIC: Denies any suicidal or homicidal ideation. Denies hallucinations. PHYSICAL EXAM GENERAL APPEARANCE: The patient is awake, alert, and oriented, in no acute cardiopulmonary distress. NEUROLOGICAL: Cranial nerves II-XII grossly intact. Motor is 5/5 in bilateral upper and lower extremities proximal to distal. No sensory deficits. HEENT: Face is symmetric. Pupils are equal and reactive. Extraocular movements are intact. NECK: Supple. No JVD. No thyromegaly. No submental, submandibular, pre- /postauricular, occipital or supraclavicular lymphadenopathy. CHEST: Normal chest expansion. No Telemetry. LUNGS: Absence of any rales, rhonchi or any wheezing. CARDIOVASCULAR: Regular. S1 and S2 normal. No appreciable rubs, murmurs or gallops. ABDOMEN: Soft, nontender, and nondistended. There is no rebound, voluntary guarding, or rigidity. : Deferred. No Leija. EXTREMITIES: Non-edematous and not cyanotic. No clubbing. Good capillary refill. SKIN: No skin breakdown. Vital Signs (last 8hr) Date Time Temp Pulse Resp B/P (MAP) Pulse Ox O2 Delivery O2 Flow Rate FiO2 05/10/25 10:22 98 20 05/10/25 08:00 98.1 100 19 147/89 91 Room Air 21 05/10/25 07:08 100 20 05/10/25 07:08 100 20 N/A Room Air 05/10/25 03:02 98.4 104 19 143/88 90 Room Air LABS: Laboratory: Test 05/10/25 05:29 05/09/25 05:35 Range/Units White Blood Count 10.3 # 4.8-10.8 K/uL Red Blood Count 3.51 L 4.00-5.50 MIL/uL Hemoglobin 9.9 L 12.0-16.0 g/dL Hematocrit 29.4 L 36-48 % Mean Corpuscular Volume 83.8 79-99 fL Mean Corpuscular Hemoglobin 28.2 27.0-33.0 pg Mean Corpuscular Hemoglobin Concent 33.7 32.0-36.0 g/dL Red Cell Distribution Width 14.4 11.0-15.5 % Platelet Count 359 130-400 K/uL Mean Platelet Volume 10.4 7.5-10.5 fL Nucleated Red Blood Cells 0.0 0.0-0.19 % Sodium Level 139 136-145 mmol/L Potassium Level 3.8 3.5-5.1 mmol/L Chloride Level 103 101-111 mmol/L Carbon Dioxide Level 27 21-32 mmol/L Blood Urea Nitrogen 10 7-18 mg/dL Creatinine 0.6 0.5-1.0 mg/dL Glomerular Filtration Rate Calc 108 >90 mL/min Random Glucose 191 H 70-105 mg/dL Total Calcium 8.5 8.5-10.1 mg/dL Magnesium Level 2.10 1.80-2.40 mg/dL Total Bilirubin 0.5 # 0.2-1.0 mg/dL Aspartate Amino Transf (AST/SGOT) 25 10-37 U/L Alanine Aminotransferase (ALT/SGPT) 52 12-78 U/L Alkaline Phosphatase 130 50-136 U/L Total Protein 6.6 6.0-8.3 g/dL Albumin 2.3 L 3.5-5.0 g/dL Immature Granulocyte % (Auto) 1.9 H 0-1 % Neutrophils (%) (Auto) 91.7 H 40.0-77.0 % Lymphocytes (%) (Auto) 4.4 L 21.0-51.0 % Monocytes (%) (Auto) 1.7 L 3.0-13.0 % Eosinophils (%) (Auto) 0.1 0.0-8.0 % Basophils (%) (Auto) 0.2 0.0-5.0 % Neutrophils # (Auto) 17.3 H 1.8-7.7 K/uL Lymphocytes # (Auto) 0.8 L 1.0-4.8 K/uL Monocytes # (Auto) 0.3 0.1-1.0 K/uL Eosinophils # (Auto) 0.02 0.00-0.70 K/uL Basophils # (Auto) 0.03 0.00-0.20 K/uL Absolute Immature Granulocyte (auto 0.35 0-1 K/uL Iron Level 52 50-170 mcg/dL Total Iron Binding Capacity 193 L 250-450 mcg/dL Percent Iron Saturation 26.9 22-44 % Current Medications Medications (Trade) Dose Ordered Sig/Emely Route PRN Reason Start Time Stop Time Status Last Admin Dose Admin Acetaminophen (TYLenol 325MG TAB) 650 mg Q4H PRN PO MILD PAIN (1-3) 05/07/25 19:30 06/06/25 19:29 Acetaminophen (TYLenol 325MG TAB) 650 mg Q6H PRN PO TEMPERATURE GREATER THAN 101.5 05/07/25 19:30 06/06/25 19:29 Albuterol (DUOneb) 1 udvial [id number] IH 05/07/25 22:00 06/06/25 21:59 05/10/25 10:21 1 UDVIAL Azithromycin 250 ml @ 250 mls/hr Q24H IV 05/08/25 00:00 05/18/25 00:00 05/10/25 01:39 250 MLS/HR Ceftriaxone Sodium 1 gm/ Sodium Chloride 50 ml @ 100 mls/hr Q24H IV 05/08/25 09:00 05/07/25 19:21 DC Ceftriaxone Sodium (ROCEphine 1G INJ) 1 gm DAILY IVPB 05/08/25 09:00 05/09/25 17:58 DC 05/09/25 09:24 1 GM Ceftriaxone Sodium (Rocephin 2gm Inj) 2 gm DAILY IVPB 05/10/25 09:00 05/20/25 08:59 05/10/25 08:14 2 GM Famotidine (Pepcid 20mg Tab) 20 mg BID PO 05/07/25 21:00 06/06/25 20:59 05/10/25 08:14 20 MG Guaifenesin/ Dextromethorphan (RobiTUSSin DM 200/20MG 10ML) 10 ml Q4H PRN PO COUGH 05/07/25 19:30 06/06/25 19:29 05/08/25 12:19 10 ML Magnesium Sulfate 50 ml @ 0 mls/hr PROTOCOL PRN IV hypomagnesemia 05/09/25 10:30 06/08/25 10:29 Methylprednisolone Sodium Succinate (Solu-medROL 40MG) 40 mg Q6H IVP 05/09/25 14:00 06/08/25 13:59 05/10/25 08:13 40 MG Metoprolol Tartrate (loprESSOR) 12.5 mg BID PO 05/09/25 21:00 06/08/25 20:59 05/10/25 08:13 12.5 MG Ondansetron HCl (zoFRAN 4MG INJ) 4 mg Q6H PRN IV NAUSEA/VOMITING 05/07/25 19:30 06/06/25 19:29 DIAGNOSTICS / RADIOLOGY: [ ] ASSESSMENT: Community-acquired pneumonia POA Acute leukocytosis POA Hyperglycemia POA Acute normocytic normochromic anemia POA PLAN: We will continue the patient on Rocephin and azithromycin IV. Continue the patient on Solu-Medrol IV. Continue to follow Pulmonary input and recommendation. ID input noted and appreciated, continue current IV antibiotics. Pending Legionella and Streptococcus antigen. Follow serology to include influenza type a and B, SARS antigen as well as rapid strep A. We will request echocardiogram to evaluate pericardial effusion. Continue the patient on metoprolol tartrate 12.5 mg p.o. b.i.d.. Follow 12 lead EKG. NEURO: Minimize central acting medications as possible. Fall Precautions. Well lighted room through the day and minimize interruptions through the night to prevent acute delirium. PULMONARY: Supplemental 02 as needed BiPAP as necessary, for respiratory distress Titrate Fio2 to keep Spo2 > or = 90% DuoNebs and CPT as needed IS hourly while awake for pulmonary hygiene prn Out of bed to chair as tolerated Maintain aspiration precautions at all times CARDIOVASCULAR: Follow hemodynamics. Vital signs per facility protocol GI & NUTRITION: Continue nutritional support Aspirations precautions Prokinetic agents and laxatives as needed KIDNEYS & ELECTROLYTES: Strict monitoring of intake and output Daily weights Avoid nephrotoxic agents Monitor electrolytes and replace as needed Goal urine output of 30mL/hr or 0.5mL/kg/hr Medications to be dosed according to renal function. Avoid contrast if possible ENDOCRINE: Maintain blood glucose between 100-180 at all times. Insulin sliding scale for blood glucose management Hypoglycemia and hyperglycemia protocol in place INFECTIOUS DISEASE: Trend temperature, WBC and procalcitonin level Follow cultures, deescalate antibiotics as soon as possible. Panculture if new onset fever HEMATOLOGY & COAGULATION: Monitor H&H. Keep Hgb > 7 Transfuse 1 unit of PRBC for Hgb < 7 Transfuse 1 pack of platelets of platelets < 20, 000 Watch for any signs and symptoms of bleeding SKIN: Pressure ulcer prevention per facility protocol Specialty mattress as needed ORTHO/REHAB Continue PT/OT PRN: MEDICATIONS Tylenol 650 mg po every 4 hrs for fever zofran 4 mg IV every 6 hrs for n/v Hydralazine 5 mg IV every 4 hrs systolic pressure > 160 bowel regiment: lactulose 20 gm PO BID PRN constipation Supportive measures: Continue GI and DVT prophylaxis Disposition: Pending improvement in clinical condition All questions answered time spent: > 35 min TUYET THIBODEAUX MD May 10, 2025 10:55
[2025-05-10 15:22] LABS: RAPID GROUP A STREP negative (NEGATIVE)
[2025-05-10 15:33] LABS: COVID19 (SARS ANTIGEN RAPID) PRESUMPTIVE NEGATIVE (NEGATIVE); INFLUENZA TYPE A Negative For Type A (NEGATIVE); INFLUENZA TYPE B Negative For Type B (NEGATIVE)
--- NOTE | 2025-05-10 16:03 | PN ---
INFECTIOUS DISEASE PROGRESS NOTE Date of Service: May 10, 2025 SUBJECTIVE: This is a 50-year-old female patient who was admitted to the hospital for chief complaint of fever, cough and shortness of breaths. A CT chest showed severe multifocal pneumonia in bilateral lungs. Patient is currently on ceftriaxone and azithromycin and we will continue. Patient has been started on IV steroids daily. Patient denied nausea or vomiting this morning. Remains afebrile, temperature is 98.1 and the WBC is 10.3. No growth reported on the sputum culture yet. We will continue to follow patient's care. PHYSICAL EXAM EYES: Anicteric. Pupils equal and reactive. HENT: No oral thrush seen, moist Oral mucosa. NECK: Supple, no JVD or thyromegaly. LUNGS: No rales, no rhonchi. Nonproductive cough. CARDIOVASCULAR: S1, S2 regular. No murmur heard. ABDOMEN: Soft, non tender, bowel sounds present, no organomegaly. CENTRAL NERVOUS SYSTEM: Awake, alert, oriented x 3. SKIN: No rashes, no swelling. LYMPHATICS: No peripheral lymphadenopathy. MUSCULOSKELETAL: No joint swelling, erythema or tenderness. EXTREMITIES: No cyanosis or clubbing. BACK: No deformity, no pressure ulcer. GENITOURINARY: No dysuria or hematuria. Vital Sign (Last 12 Hours) 05/10/25 05/10/25 05/10/25 05/10/25 07:08 07:08 08:00 08:00 Temp 98.1 Pulse 100 100 100 Resp 20 20 19 B/P (MAP) 147/89 Pulse Ox 92 91 O2 Delivery N/A Room Air Room Air* Room Air O2 Flow Rate 0 FiO2 21 21 05/10/25 05/10/25 05/10/25 10:22 12:00 14:26 Temp 98.1 Pulse 98 109 105 Resp 20 18 20 B/P (MAP) 148/88 Pulse Ox 91 O2 Delivery Room Air FiO2 21 Intake & Output (last 24hrs) 05/09/25 05/09/25 05/10/25 15:00 23:00 07:00 Intake Total 550.0 ml Balance 550.0 ml LABS: Laboratory: Test 05/10/25 14:00 05/10/25 13:50 05/10/25 05:29 05/09/25 05:35 Range/Units Stool Occult Blood NEGATIVE NEGATIVE Influenza Type A Antigen Negative For Type A NEGATIVE Influenza Type B Antigen Negative For Type B NEGATIVE SARS-CoV-2 Antigen (Rapid) PRESUMPTIVE NEGATIVE NEGATIVE Group A Streptococcus Rapid negative NEGATIVE White Blood Count 10.3 # 4.8-10.8 K/uL Red Blood Count 3.51 L 4.00-5.50 MIL/uL Hemoglobin 9.9 L 12.0-16.0 g/dL Hematocrit 29.4 L 36-48 % Mean Corpuscular Volume 83.8 79-99 fL Mean Corpuscular Hemoglobin 28.2 27.0-33.0 pg Mean Corpuscular Hemoglobin Concent 33.7 32.0-36.0 g/dL Red Cell Distribution Width 14.4 11.0-15.5 % Platelet Count 359 130-400 K/uL Mean Platelet Volume 10.4 7.5-10.5 fL Nucleated Red Blood Cells 0.0 0.0-0.19 % Sodium Level 139 136-145 mmol/L Potassium Level 3.8 3.5-5.1 mmol/L Chloride Level 103 101-111 mmol/L Carbon Dioxide Level 27 21-32 mmol/L Blood Urea Nitrogen 10 7-18 mg/dL Creatinine 0.6 0.5-1.0 mg/dL Glomerular Filtration Rate Calc 108 >90 mL/min Random Glucose 191 H 70-105 mg/dL Total Calcium 8.5 8.5-10.1 mg/dL Magnesium Level 2.10 1.80-2.40 mg/dL Total Bilirubin 0.5 # 0.2-1.0 mg/dL Aspartate Amino Transf (AST/SGOT) 25 10-37 U/L Alanine Aminotransferase (ALT/SGPT) 52 12-78 U/L Alkaline Phosphatase 130 50-136 U/L Total Protein 6.6 6.0-8.3 g/dL Albumin 2.3 L 3.5-5.0 g/dL Immature Granulocyte % (Auto) 1.9 H 0-1 % Neutrophils (%) (Auto) 91.7 H 40.0-77.0 % Lymphocytes (%) (Auto) 4.4 L 21.0-51.0 % Monocytes (%) (Auto) 1.7 L 3.0-13.0 % Eosinophils (%) (Auto) 0.1 0.0-8.0 % Basophils (%) (Auto) 0.2 0.0-5.0 % Neutrophils # (Auto) 17.3 H 1.8-7.7 K/uL Lymphocytes # (Auto) 0.8 L 1.0-4.8 K/uL Monocytes # (Auto) 0.3 0.1-1.0 K/uL Eosinophils # (Auto) 0.02 0.00-0.70 K/uL Basophils # (Auto) 0.03 0.00-0.20 K/uL Absolute Immature Granulocyte (auto 0.35 0-1 K/uL Iron Level 52 50-170 mcg/dL Total Iron Binding Capacity 193 L 250-450 mcg/dL Percent Iron Saturation 26.9 22-44 % DIAGNOSTICS / RADIOLOGY: PATIENT: MOSES GARRIDO MR#: [id number] : 1975 SEX: F AGE: 50 LOCATION: [facility] ORDER [id number] STATUS: ADM IN REPORT#: [id number] SERVICE 1016 REASON: multifocal pneumonia ORDERING PHYSICIAN: TUYET THIBODEAUX MD PROCEDURE: CHEST WO - CT CHEST W/O CONTRAST EXAM: Non-contrast CT examination of the chest CLINICAL HISTORY: Multifocal pneumonia. TECHNIQUE: Thin collimated axial CT images of the chest were obtained with sagittal and coronal reformatted images also submitted. CT scan is done according to ALARA (As Low as Reasonably Achievable). CONTRAST USED: None. COMPARISON: None provided. FINDINGS: Severe multifocal consolidations in the bilateral lungs, compatible with multifocal pneumonia. Trace pleural effusions bilaterally, more pronounced on the left side. No pneumothorax. Trace pericardial effusion. Mild cardiomegaly. No thoracic aortic aneurysm. The pulmonary artery is normal in diameter. Reactive mediastinal lymphadenopathy. No focal thyroid abnormality. Status postcholecystectomy. Partially visualized, uncomplicated colonic diverticula. The remaining included upper abdominal organs are within normal limits. No acute or suspicious osseous abnormality. Chronic anterior wedge compression fracture with 20% height reduction at the T9 vertebral body. IMPRESSION: Severe multifocal pneumonia in the bilateral lungs. Trace pleural effusions bilaterally, more pronounced on the left side. Reactive mediastinal lymphadenopathy. Trace pericardial effusion. Mild cardiomegaly. /[place] DICTATED BY: DESMOND BLAND Jr., MD DATE: 05/10/2540 ASSESSMENT: Multifocal pneumonia. Sepsis. Leukocytosis. Urinary tract infection. PLAN: Continue ceftriaxone. Continue azithromycin. Continue GI prophylaxis. Continue Solu-Medrol IV daily. Continue DuoNebs. We will follow up on the cultures. This case was reviewed and discussed with my supervising physician and the above assessment and plan was formulated and agreed upon. ATTESTATION BY PHYSICIAN I have seen and examined the patient. I reviewed the documentation, medical decision making, and treatment plan as noted by the mid-level provider above. I agree with the findings and plan of care. BEN CLEMENTS MD, MIRTA L [facility] May 10, 2025 16:03
--- NOTE | 2025-05-10 16:46 | PN ---
[facility] PROGRESS NOTE Date Patient Seen: May 10, 2025 Time of Visit: 1156 Supervising Physician: Dr. Cormier Inpatient Consults: BIS PROBLEM LIST: Community-acquired multifocal pneumonia Acute leukocytosis Acute normocytic normochromic anemia INTERVAL HISTORY: 05/10 patient was seen and examined at bedside with family present. Patient is a wake alert able to answer simple questions appropriately. Patient denies any chest pain report shortness of breadth has slowly improved. Patient remains on room air tolerating well. Patient denies any nausea vomiting or abdominal pain. At this time we will decrease patient's Solu-Medrol to 40 mg b.i.d.. Patient to continue on IV antibiotics. Patient will need a repeat CT scan without contrast within 4-6 weeks to to make sure infiltrates have resolved if repeat CT chest still showing significant infiltrates patient will need further workup and possibly lung biopsy Plan summary Patient will need a repeat CT scan without contrast within 4-6 weeks to to make sure infiltrates have resolved if repeat CT chest still showing significant infiltrates patient will need further workup and possibly lung biopsy Obtain sputum culture, pending Obtain flu swab , pending Continue Solu-Medrol 40 mg b.i.d. Continue IV antibiotics per ID recommendations 6 minute walk prior to discharge Rest of the care per primary team REVIEW OF SYSTEMS: 12 point ROS reviewed with patient. Pertinent positives mentioned above. Otherwise negative. PHYSICAL EXAM: GENERAL: alert, weak, awake oriented x 3 HEENT: EOMI, Sclera non icteric, moist mucosa NECK: Supple, no JVD, trachea midline LUNGS: Clear breath sounds bilaterally. No wheezes HEART: Regular rate and rhythm. Normal S1 and S2, without murmurs ABD: Abdomen soft, nontender. Bowel sounds present EXT: No clubbing cyanosis or edema NEURO: Alert and oriented to person, follows commands Vital Signs (last 8hr) Date Time Temp Pulse Resp B/P (MAP) Pulse Ox O2 Delivery O2 Flow Rate FiO2 05/10/25 16:00 98.6 102 19 131/88 92 Nasal Cannula 1.0 05/10/25 14:26 105 20 05/10/25 12:00 98.1 109 18 148/88 91 Room Air 21 05/10/25 10:22 98 20 LABS: Hematology Labs: Test 05/10/25 05:29 05/09/25 05:35 Range/Units White Blood Count 10.3 # 4.8-10.8 K/uL Red Blood Count 3.51 L 4.00-5.50 MIL/uL Hemoglobin 9.9 L 12.0-16.0 g/dL Hematocrit 29.4 L 36-48 % Mean Corpuscular Volume 83.8 79-99 fL Mean Corpuscular Hemoglobin 28.2 27.0-33.0 pg Mean Corpuscular Hemoglobin Concent 33.7 32.0-36.0 g/dL Red Cell Distribution Width 14.4 11.0-15.5 % Platelet Count 359 130-400 K/uL Mean Platelet Volume 10.4 7.5-10.5 fL Nucleated Red Blood Cells 0.0 0.0-0.19 % Immature Granulocyte % (Auto) 1.9 H 0-1 % Neutrophils (%) (Auto) 91.7 H 40.0-77.0 % Lymphocytes (%) (Auto) 4.4 L 21.0-51.0 % Monocytes (%) (Auto) 1.7 L 3.0-13.0 % Eosinophils (%) (Auto) 0.1 0.0-8.0 % Basophils (%) (Auto) 0.2 0.0-5.0 % Neutrophils # (Auto) 17.3 H 1.8-7.7 K/uL Lymphocytes # (Auto) 0.8 L 1.0-4.8 K/uL Monocytes # (Auto) 0.3 0.1-1.0 K/uL Eosinophils # (Auto) 0.02 0.00-0.70 K/uL Basophils # (Auto) 0.03 0.00-0.20 K/uL Absolute Immature Granulocyte (auto 0.35 0-1 K/uL Chemistry Labs: Test 05/10/25 05:29 05/09/25 05:35 Range/Units Sodium Level 139 136-145 mmol/L Potassium Level 3.8 3.5-5.1 mmol/L Chloride Level 103 101-111 mmol/L Carbon Dioxide Level 27 21-32 mmol/L Blood Urea Nitrogen 10 7-18 mg/dL Creatinine 0.6 0.5-1.0 mg/dL Glomerular Filtration Rate Calc 108 >90 mL/min Random Glucose 191 H 70-105 mg/dL Total Calcium 8.5 8.5-10.1 mg/dL Magnesium Level 2.10 1.80-2.40 mg/dL Total Bilirubin 0.5 # 0.2-1.0 mg/dL Aspartate Amino Transf (AST/SGOT) 25 10-37 U/L Alanine Aminotransferase (ALT/SGPT) 52 12-78 U/L Alkaline Phosphatase 130 50-136 U/L Total Protein 6.6 6.0-8.3 g/dL Albumin 2.3 L 3.5-5.0 g/dL Iron Level 52 50-170 mcg/dL Total Iron Binding Capacity 193 L 250-450 mcg/dL Percent Iron Saturation 26.9 22-44 % DIAGNOSTICS / RADIOLOGY RESULTS: na PLAN NEURO: Minimize central acting medications as possible. Maintain fall precautions, adequate lighting during the day PULMONARY: Supplemental 02 as needed. Maintain aspiration precautions at all times CARDIOVASCULAR: Follow hemodynamics. Vital signs per facility protocol GI & NUTRITION: Continue with nutritional support. Continue stool softeners and laxatives as needed. KIDNEYS & ELECTROLYTES: Strict monitoring of intake, output and overall fluid balance. Avoid nephrotoxic medications to the extent possible. Medications to be dosed according to renal function. Monitor electrolytes and replace as needed ENDOCRINE: Maintain blood glucose between 100-180 at all times. Hypoglycemia protocol in place INFECTIOUS DISEASE: Trend temperature, WBC and procalcitonin level Follow cultures, deescalate antibiotics as soon as possible. Panculture if new onset fever ONCOLOGY/HEMATOLOGY/COAGULATION: Monitor for s/s of bleeding Monitor hemoglobin, coagulation studies as needed SKIN: Pressure ulcer prevention per facility protocol Specialty mattress ORTHO/REHAB: Continue PT/OT Prophylaxis: Continue GI and DVT prophylaxis Code Status: Full Resuscitation Disposition: Per primary team Other: Case discussed with supervising physician plan of care agreed upon ANCA MACIAS [employer] May 10, 2025 16:46
[2025-05-11] VITALS (15 sets, daily range): BP systolic 137–158; BP diastolic 83–93; PULSE 81–100; RESP 18–22; TEMP 97.4–98.5; O2SAT 83–98
[2025-05-11] MEDS: Solu-medROL 40MG VIAL IVP SCH (08:31)
--- NOTE | 2025-05-11 08:50 | NUR ---
NURSING NOTE PATIENT STATED THEY HAD SOME TYPE OF ALLERGIC REACTION LAST NIGHT AROUND MIDNIGHT. PATIENT IS NOT SURE WHAT COULD OF CAUSED IT. PATIENT WANTED TO HOLD OFF ON SOME MEDS UNTIL WE FIGURE OUT WHAT CAUSED IT. PRIMARY WAS NOTIFIED ABOUT THIS.
--- NOTE | 2025-05-11 10:23 | PN ---
[facility] PROGRESS NOTE Date of Service: May 11, 2025 Time of Service: 10:19 SUBJECTIVE: [ 05/07 This is a 50-year-old female with no pertinent medical history who presents to the ED for complaints of dry cough , fever and shortness of breaths which started two days ago. Patient states her condition started one week ago having symptoms of diarrhea, and headache which she went to see her PCP and was prescribed with Zofran, omeprazole, nystatin and Augmentin q.12 for seven days and patient reports she started feeling better however two days ago he noticed having dry cough, fever and chills last night and shortness of breath today.Patient reports she went to a free standing ER and was given steroids shot and IVF and IV antibiotic and recommended for admission and as per patient she refused and decided to go home .On their way home she still feel the same and daughter convinced her to get admitted so she decided to come to this ER facility ,thus prompted this admission. Seen and examined patient in the ER awake,alert and coherent ,in no apparent distress.Patient denies chest pain,palpitation,nausea,vomiting and abdominal pain. Latest vital signs temperature 97.3, heart rate 89, blood pressure 115/60 saturation 94% on room air. Labs: WBC 18, hemoglobin 11, hematocrit 33 platelet count 261. Chloride 99, random glucose 196 lactic acid 1.3 the rest of the chemistries normal. Chest x-ray result revealed multifocal pneumonia in the left lung and mid to lower right lung. While in the ER patient received albuterol and Rocephin 1 g IV. We will admit patient for further medical management. 05/08 patient was seen by nurse practitioner and physician during rounding in room 313. Patient's chest x-ray came back positive for pneumonia. Patient continues to be on Rocephin and azithromycin. WBC is trending down today is 14.2. UA was positive for leukocytosis. We are pending blood urine and sputum culture at this moment. We will continue to monitor patient in the meantime. A.m. labs] 05/09 patient remains admitted to the medical floor, comfortably in bed, alert oriented x3, getting IV antibiotics, no acute events overnight. Blood pressure 144/84, heart rate of 102, afebrile, saturating normal on room air. Denied chest pain, dry nonproductive cough. WBC remains elevated 18.9, hemoglobin 8.5, hematocrit 28.0, platelet count 341. Potassium 3.1, magnesium 2.2. We will do stool occult blood, iron panel, we will check for influenza type B and B, SARS antigen, rapid strep, GI panel, Legionella and Streptococcus antigen, pulmonary and Infectious Disease consulted, CT chest without contrast requested. Start metoprolol 12.5 mg p.o. b.i.d.. 05/10 patient remains admitted to the medical floor, blood pressure 147/89, heart rate of 98, afebrile, saturating normal on room air. Hemoglobin 9.9, hematocrit 29.4, WBC down to normal 10.3, platelet count 359. Sodium 139, potassium 3.8, BUN of 10, creatinine 0.6, random glucose level 191, hemoglobin A1c 5.9. Iron level of 52. Sputum culture no organisms seen. Blood cultures no growth after 48 hours. Urine culture negative. CT chest without contrast showing severe multifocal pneumoniae in the bilateral lungs, trace pleural effusions bilaterally, reactive mediastinal lymphadenopathy, trace pericardial effusion, mild cardiomegaly. We will continue the patient on Rocephin and azithromycin IV. Continue the patient on Solu-Medrol IV. Continue to follow Pulmonary input and recommendation. ID input noted and appreciated, continue current IV antibiotics. Pending Legionella and Streptococcus antigen. Follow serology to include influenza type a and B, SARS antigen as well as rapid strep A. We will request echocardiogram to evaluate pericardial effusion. Continue the patient on metoprolol tartrate 12.5 mg p.o. b.i.d.. Follow 12 lead EKG. During my visit patient comfortably in bed, alert oriented x3, getting IV fluids and IV antibiotics. She denies chest pain, shortness shortness for breath, no cough, no nausea, no vomiting, no abdominal pain. Plan of care discussed in detail, all questions answered, agreed and understood the information provided. 05/11 patient remains admitted to the medical floor, BP 151/92, heart rate controlled at 81, afebrile, saturating 96% on 2 L nasal cannula. Leukocytosis resolved, WBC at 10.3, hemoglobin stable 9.9, hematocrit 29.4, platelet count 359. CMP is unremarkable. Serology test to include influenza type a and B are negative, SARS antigen negative, group a strep negative. Stool occult blood negative. Blood cultures negative. Sputum culture normal oropharyngeal jesus. Echocardiogram pending. Infectious disease input noted and appreciated, continue the patient on broad-spectrum antibiotic with Rocephin and azithromycin. Continue Solu-Medrol IV. Continue to follow Pulmonary input and recommendations, echocardiogram pending to evaluate ejection fraction, and to evaluate for small pericardial effusion. We will request Physical therapy to evaluate the patient. Increase metoprolol tartrate to 25 mg p.o. b.i.d.. During my visit the patient is comfortably in bed, alert oriented x3, case discussed with the RN, no acute events overnight, getting IV antibiotics during my visit, no chest pain, shortness shortness for breath, no nausea, no vomiting. REVIEW OF SYSTEMS CONSTITUTIONAL: Denies fevers, chills, or night sweats. No unintentional weight loss reported. NEUROLOGICAL: Denies headache, amaurosis fugax, motor weakness, sensory deficit, vertigo/spinning sensation, gait abnormalities, or tremors. ENT: No hearing loss, otalgia, otorrhea, rhinitis, rhinorrhea, hoarseness, or sore throat. CARDIOVASCULAR: Denies any exertional angina, dyspnea on exertion, orthopnea, paroxysmal nocturnal dyspnea, palpitations, life-threatening arrhythmias, claudication. PULMONARY: Dry cough and shortness of breaths Denies phlegm/sputum, hemoptysis, pleuritic chest pain. SLEEP: Denies morning headaches, daytime somnolence or napping. Denies difficulty falling asleep, staying asleep, waking from sleep. Denies knowledge of snoring. GASTROINTESTINAL: Denies any type of dysphagia to either liquids or solids. Denies nausea, vomiting, pyrosis, early satiety, abdominal pain, diarrhea, constipation, or changes in stool consistency or caliber. Denies coffee-ground emesis, hematemesis, hematochezia, or melanotic stools. GENITOURINARY: Denies frequency, urgency, nocturia, hematuria or incontinence (Storage/Irritative symptoms.) Low urinary stream, straining to void, urinary intermittency or hesitancy, splitting of the voiding stream, terminal dribbling. ENDOCRINOLOGIC: Denies polyuria, polydipsia, polyphagia or heat/cold intolerances. HEMATOLOGIC: Denies thrombophilia/previous clots, or coagulopathy/bleeding disorders. ONCOLOGIC: Denies personal history of malignancy. DERMATOLOGIC: Denies rashes or pruritus. PSYCHIATRIC: Denies any suicidal or homicidal ideation. Denies hallucinations. PHYSICAL EXAM GENERAL APPEARANCE: The patient is awake, alert, and oriented, in no acute cardiopulmonary distress. NEUROLOGICAL: Cranial nerves II-XII grossly intact. Motor is 5/5 in bilateral upper and lower extremities proximal to distal. No sensory deficits. HEENT: Face is symmetric. Pupils are equal and reactive. Extraocular movements are intact. NECK: Supple. No JVD. No thyromegaly. No submental, submandibular, pre-/postauricular, occipital or supraclavicular lymphadenopathy. CHEST: Normal chest expansion. No Telemetry. LUNGS: Absence of any rales, rhonchi or any wheezing. CARDIOVASCULAR: Regular. S1 and S2 normal. No appreciable rubs, murmurs or gallops. ABDOMEN: Soft, nontender, and nondistended. There is no rebound, voluntary guarding, or rigidity. : Deferred. No Leija. EXTREMITIES: Non-edematous and not cyanotic. No clubbing. Good capillary refill. SKIN: No skin breakdown. Vital Signs (last 8hr) Date Time Temp Pulse Resp B/P (MAP) Pulse Ox O2 Delivery O2 Flow Rate FiO2 05/11/25 09:36 85 19 N/Cannula Low lpm 2.0 28 05/11/25 09:27 85 19 05/11/25 08:00 97.3 81 20 151/92 92 Nasal Cannula 2.0 05/11/25 06:49 82 19 N/Cannula Low lpm 2.0 28 05/11/25 06:45 82 18 05/11/25 04:00 98.1 93 20 156/87 96 Nasal Cannula 2.0 05/11/25 02:35 97 20 LABS: Laboratory: Test 05/10/25 14:00 05/10/25 13:50 05/10/25 05:29 Range/Units Stool Occult Blood NEGATIVE NEGATIVE Influenza Type A Antigen Negative For Type A NEGATIVE Influenza Type B Antigen Negative For Type B NEGATIVE SARS-CoV-2 Antigen (Rapid) PRESUMPTIVE NEGATIVE NEGATIVE Group A Streptococcus Rapid negative NEGATIVE White Blood Count 10.3 # 4.8-10.8 K/uL Red Blood Count 3.51 L 4.00-5.50 MIL/uL Hemoglobin 9.9 L 12.0-16.0 g/dL Hematocrit 29.4 L 36-48 % Mean Corpuscular Volume 83.8 79-99 fL Mean Corpuscular Hemoglobin 28.2 27.0-33.0 pg Mean Corpuscular Hemoglobin Concent 33.7 32.0-36.0 g/dL Red Cell Distribution Width 14.4 11.0-15.5 % Platelet Count 359 130-400 K/uL Mean Platelet Volume 10.4 7.5-10.5 fL Nucleated Red Blood Cells 0.0 0.0-0.19 % Sodium Level 139 136-145 mmol/L Potassium Level 3.8 3.5-5.1 mmol/L Chloride Level 103 101-111 mmol/L Carbon Dioxide Level 27 21-32 mmol/L Blood Urea Nitrogen 10 7-18 mg/dL Creatinine 0.6 0.5-1.0 mg/dL Glomerular Filtration Rate Calc 108 >90 mL/min Random Glucose 191 H 70-105 mg/dL Total Calcium 8.5 8.5-10.1 mg/dL Magnesium Level 2.10 1.80-2.40 mg/dL Total Bilirubin 0.5 # 0.2-1.0 mg/dL Aspartate Amino Transf (AST/SGOT) 25 10-37 U/L Alanine Aminotransferase (ALT/SGPT) 52 12-78 U/L Alkaline Phosphatase 130 50-136 U/L Total Protein 6.6 6.0-8.3 g/dL Albumin 2.3 L 3.5-5.0 g/dL Current Medications Medications (Trade) Dose Ordered Sig/Emely Route PRN Reason Start Time Stop Time Status Last Admin Dose Admin Acetaminophen (TYLenol 325MG TAB) 650 mg Q4H PRN PO MILD PAIN (1-3) 05/07/25 19:30 06/06/25 19:29 Acetaminophen (TYLenol 325MG TAB) 650 mg Q6H PRN PO TEMPERATURE GREATER THAN 101.5 05/07/25 19:30 06/06/25 19:29 Albuterol (DUOneb) 1 udvial [id number] IH 05/07/25 22:00 06/06/25 21:59 05/11/25 09:27 1 UDVIAL Azithromycin 250 ml @ 250 mls/hr Q24H IV 05/08/25 00:00 05/18/25 00:00 05/11/25 00:07 250 MLS/HR Ceftriaxone Sodium 1 gm/ Sodium Chloride 50 ml @ 100 mls/hr Q24H IV 05/08/25 09:00 05/07/25 19:21 DC Ceftriaxone Sodium (ROCEphine 1G INJ) 1 gm DAILY IVPB 05/08/25 09:00 05/09/25 17:58 DC 05/09/25 09:24 1 GM Ceftriaxone Sodium (Rocephin 2gm Inj) 2 gm DAILY IVPB 05/10/25 09:00 05/20/25 08:59 05/11/25 08:33 2 GM Famotidine (Pepcid 20mg Tab) 20 mg BID PO 05/07/25 21:00 06/06/25 20:59 05/10/25 20:09 20 MG Guaifenesin/ Dextromethorphan (RobiTUSSin DM 200/20MG 10ML) 10 ml Q4H PRN PO COUGH 05/07/25 19:30 06/06/25 19:29 05/11/25 00:07 10 ML Magnesium Sulfate 50 ml @ 0 mls/hr PROTOCOL PRN IV hypomagnesemia 05/09/25 10:30 06/08/25 10:29 Methylprednisolone Sodium Succinate (Solu-medROL 40MG) 40 mg AM IVP 05/11/25 09:00 06/08/25 13:59 05/11/25 08:41 40 MG Methylprednisolone Sodium Succinate (Solu-medROL 40MG) 40 mg Q6H IVP 05/09/25 14:00 05/10/25 14:33 DC 05/10/25 08:13 40 MG Metoprolol Tartrate (loprESSOR) 12.5 mg BID PO 05/09/25 21:00 06/08/25 20:59 05/10/25 20:10 12.5 MG Ondansetron HCl (zoFRAN 4MG INJ) 4 mg Q6H PRN IV NAUSEA/VOMITING 05/07/25 19:30 06/06/25 19:29 DIAGNOSTICS / RADIOLOGY: [ ] ASSESSMENT: Community-acquired pneumonia POA Acute hypoxemic respiratory failure secondary to community-acquired pneumonia, POA Acute leukocytosis POA Hyperglycemia POA Acute normocytic normochromic anemia POA Uncontrolled hypertension, POA PLAN: patient remains admitted to the medical floor, BP 151/92, heart rate controlled at 81, afebrile, saturating 96% on 2 L nasal cannula. Leukocytosis resolved, WBC at 10.3, hemoglobin stable 9.9, hematocrit 29.4, platelet count 359. CMP is unremarkable. Serology test to include influenza type a and B are negative, SARS antigen negative, group a strep negative. Stool occult blood negative. Blood cultures negative. Sputum culture normal oropharyngeal jesus. Echocardiogram pending. Infectious disease input noted and appreciated, continue the patient on broad- spectrum antibiotic with Rocephin and azithromycin. Continue Solu-Medrol IV. Continue to follow Pulmonary input and recommendations, echocardiogram pending to evaluate ejection fraction, and to evaluate for small pericardial effusion. We will request Physical therapy to evaluate the patient. NEURO: Minimize central acting medications as possible. Fall Precautions. Well lighted room through the day and minimize interruptions through the night to prevent acute delirium. PULMONARY: Supplemental 02 as needed BiPAP as necessary, for respiratory distress Titrate Fio2 to keep Spo2 > or = 90% DuoNebs and CPT as needed IS hourly while awake for pulmonary hygiene prn Out of bed to chair as tolerated Maintain aspiration precautions at all times CARDIOVASCULAR: Follow hemodynamics. Vital signs per facility protocol GI & NUTRITION: Continue nutritional support Aspirations precautions Prokinetic agents and laxatives as needed KIDNEYS & ELECTROLYTES: Strict monitoring of intake and output Daily weights Avoid nephrotoxic agents Monitor electrolytes and replace as needed Goal urine output of 30mL/hr or 0.5mL/kg/hr Medications to be dosed according to renal function. Avoid contrast if possible ENDOCRINE: Maintain blood glucose between 100-180 at all times. Insulin sliding scale for blood glucose management Hypoglycemia and hyperglycemia protocol in place INFECTIOUS DISEASE: Trend temperature, WBC and procalcitonin level Follow cultures, deescalate antibiotics as soon as possible. Panculture if new onset fever HEMATOLOGY & COAGULATION: Monitor H&H. Keep Hgb > 7 Transfuse 1 unit of PRBC for Hgb < 7 Transfuse 1 pack of platelets of platelets < 20, 000 Watch for any signs and symptoms of bleeding SKIN: Pressure ulcer prevention per facility protocol Specialty mattress as needed ORTHO/REHAB Continue PT/OT PRN: MEDICATIONS Tylenol 650 mg po every 4 hrs for fever zofran 4 mg IV every 6 hrs for n/v Hydralazine 5 mg IV every 4 hrs systolic pressure > 160 bowel regiment: lactulose 20 gm PO BID PRN constipation Supportive measures: Continue GI and DVT prophylaxis Disposition: Pending improvement in clinical condition All questions answered time spent: > 35 min TUYET THIBODEAUX MD May 11, 2025 10:23
--- NOTE | 2025-05-11 12:16 | PN ---
INFECTIOUS DISEASE PROGRESS NOTE Date of Service: May 11, 2025 SUBJECTIVE: Patient was seen and examined at bedside in room 313. Patient is awake, alert and oriented x3. Patient is sitting up on the bedside chair with the oxygen on 2 L/min. Patient reported still feeling shortness of breaths on exertion. Patient reported having itching to her hands and the plantar of her feet while receiving an IV antibiotic last night at midnight. Per chart review patient was receiving the azithromycin IV at the time. We will change azithromycin to p.o. and continue on ceftriaxone IV. No fever, temperature is 97.3 and the WBC has trended down to 10.3. No growth reported on the sputum culture yet. We will continue to follow patient's care. PHYSICAL EXAM EYES: Anicteric. Pupils equal and reactive. HENT: No oral thrush seen, moist Oral mucosa. NECK: Supple, no JVD or thyromegaly. LUNGS: No rales, no rhonchi. Nonproductive cough. Short of breaths on exertion. CARDIOVASCULAR: S1, S2 regular. No murmur heard. ABDOMEN: Soft, non tender, bowel sounds present, no organomegaly. CENTRAL NERVOUS SYSTEM: Awake, alert, oriented x 3. SKIN: No rashes, no swelling. LYMPHATICS: No peripheral lymphadenopathy. MUSCULOSKELETAL: No joint swelling, erythema or tenderness. EXTREMITIES: No cyanosis or clubbing. BACK: No deformity, no pressure ulcer. GENITOURINARY: No dysuria or hematuria. Vital Sign (Last 12 Hours) 05/11/25 05/11/25 05/11/25 05/11/25 02:35 04:00 06:45 06:49 Temp 98.1 Pulse 97 93 82 82 Resp 20 18 19 B/P (MAP) 156/87 Pulse Ox 96 O2 Delivery Nasal Cannula N/Cannula Low lpm O2 Flow Rate 2.0 2.0 FiO2 28 05/11/25 05/11/25 05/11/25 05/11/25 08:00 09:27 09:36 11:50 Temp 97.3 97.9 Pulse 81 85 85 85 Resp 20 19 19 18 B/P (MAP) 151/92 155/93 Pulse Ox 92 94 O2 Delivery Nasal Cannula N/Cannula Low lpm Nasal Cannula O2 Flow Rate 2.0 2.0 2.0 FiO2 28 Intake & Output (last 24hrs) 05/10/25 05/10/25 05/11/25 15:00 23:00 07:00 Intake Total 1800 ml Balance 1800 ml LABS: Laboratory: Test 05/10/25 14:00 05/10/25 13:50 05/10/25 05:29 Range/Units Stool Occult Blood NEGATIVE NEGATIVE Influenza Type A Antigen Negative For Type A NEGATIVE Influenza Type B Antigen Negative For Type B NEGATIVE SARS-CoV-2 Antigen (Rapid) PRESUMPTIVE NEGATIVE NEGATIVE Group A Streptococcus Rapid negative NEGATIVE White Blood Count 10.3 # 4.8-10.8 K/uL Red Blood Count 3.51 L 4.00-5.50 MIL/uL Hemoglobin 9.9 L 12.0-16.0 g/dL Hematocrit 29.4 L 36-48 % Mean Corpuscular Volume 83.8 79-99 fL Mean Corpuscular Hemoglobin 28.2 27.0-33.0 pg Mean Corpuscular Hemoglobin Concent 33.7 32.0-36.0 g/dL Red Cell Distribution Width 14.4 11.0-15.5 % Platelet Count 359 130-400 K/uL Mean Platelet Volume 10.4 7.5-10.5 fL Nucleated Red Blood Cells 0.0 0.0-0.19 % Sodium Level 139 136-145 mmol/L Potassium Level 3.8 3.5-5.1 mmol/L Chloride Level 103 101-111 mmol/L Carbon Dioxide Level 27 21-32 mmol/L Blood Urea Nitrogen 10 7-18 mg/dL Creatinine 0.6 0.5-1.0 mg/dL Glomerular Filtration Rate Calc 108 >90 mL/min Random Glucose 191 H 70-105 mg/dL Total Calcium 8.5 8.5-10.1 mg/dL Magnesium Level 2.10 1.80-2.40 mg/dL Total Bilirubin 0.5 # 0.2-1.0 mg/dL Aspartate Amino Transf (AST/SGOT) 25 10-37 U/L Alanine Aminotransferase (ALT/SGPT) 52 12-78 U/L Alkaline Phosphatase 130 50-136 U/L Total Protein 6.6 6.0-8.3 g/dL Albumin 2.3 L 3.5-5.0 g/dL DIAGNOSTICS / RADIOLOGY: PATIENT: MOSES GARRIDO MR#: [id number] : 1975 SEX: F AGE: 50 LOCATION: [facility] ORDER 1017 STATUS: ADM IN REPORT#: [id number] SERVICE 1016 REASON: multifocal pneumonia ORDERING PHYSICIAN: TUYET THIBODEAUX MD PROCEDURE: CHEST WO - CT CHEST W/O CONTRAST EXAM: Non-contrast CT examination of the chest CLINICAL HISTORY: Multifocal pneumonia. TECHNIQUE: Thin collimated axial CT images of the chest were obtained with sagittal and coronal reformatted images also submitted. CT scan is done according to ALARA (As Low as Reasonably Achievable). CONTRAST USED: None. COMPARISON: None provided. FINDINGS: Severe multifocal consolidations in the bilateral lungs, compatible with multifocal pneumonia. Trace pleural effusions bilaterally, more pronounced on the left side. No pneumothorax. Trace pericardial effusion. Mild cardiomegaly. No thoracic aortic aneurysm. The pulmonary artery is normal in diameter. Reactive mediastinal lymphadenopathy. No focal thyroid abnormality. Status postcholecystectomy. Partially visualized, uncomplicated colonic diverticula. The remaining included upper abdominal organs are within normal limits. No acute or suspicious osseous abnormality. Chronic anterior wedge compression fracture with 20% height reduction at the T9 vertebral body. IMPRESSION: Severe multifocal pneumonia in the bilateral lungs. Trace pleural effusions bilaterally, more pronounced on the left side. Reactive mediastinal lymphadenopathy. Trace pericardial effusion. Mild cardiomegaly. /[place] DICTATED BY: DESMOND BLAND Jr., MD DATE: 05/10/25639 ASSESSMENT: Multifocal pneumonia. Sepsis. Leukocytosis. Urinary tract infection. PLAN: Continue ceftriaxone. Change azithromycin to p.o. Provide oxygen extension tubing to use to ambulate in the room. Continue GI prophylaxis. Continue Solu-Medrol IV daily. Continue DuoNebs. We will follow up on the cultures. This case was reviewed and discussed with my supervising physician and the above assessment and plan was formulated and agreed upon. ATTESTATION BY PHYSICIAN I have seen and examined the patient. I reviewed the documentation, medical decision making, and treatment plan as noted by the mid-level provider above. I agree with the findings and plan of care. BEN CLEMENTS MD, MIRTA L ZUCKER [facility] May 11, 2025 12:16
--- NOTE | 2025-05-11 14:11 | PN ---
[facility] PROGRESS NOTE Date Patient Seen: May 11, 2025 Time of Visit: 1131 Supervising Physician: Dr. Cormier Inpatient Consults: BIS PROBLEM LIST: Acute hypoxic respiratory failure requiring supplemental oxygen via nasal [place] Community-acquired multifocal pneumonia Acute leukocytosis Acute normocytic normochromic anemia INTERVAL HISTORY: 05/10 patient was seen and examined at bedside with family present. Patient is awake alert able to answer simple questions appropriately. Patient denies any chest pain report shortness of breadth has slowly improved. Patient remains on room air tolerating well. Patient denies any nausea vomiting or abdominal pain. At this time we will decrease patient's Solu-Medrol to 40 mg b.i.d.. Patient to continue on IV antibiotics. Patient will need a repeat CT scan without contrast within 4-6 weeks to to make sure infiltrates have resolved if repeat CT chest still showing significant infiltrates patient will need further workup and possibly lung biopsy 05/11 patient was seen and examined at bedside with family present. Patient has been put on oxygen via nasal cannula. As per primary nurse patient was desatting yesterday night. Patient to continue with FiO2 as needed and c ontinued titrate as tolerated. Patient to continue with antibiotics and steroids. Patient currently pending echocardiogram. Patient currently pending echocardiogram we will follow up results. Dispo per primary team Plan summary Patient will need a repeat CT scan without contrast within 4-6 weeks to to make sure infiltrates have resolved if repeat CT chest still showing significant infiltrates patient will need further workup and possibly lung biopsy Obtain sputum culture, pending Obtain flu swab , pending Continue Solu-Medrol 40 mg b.i.d. Continue IV antibiotics per ID recommendations 6 minute walk prior to discharge Continue with FiO2 as needed Continue to actively titrate FiO2 as tolerated Rest of the care per primary team REVIEW OF SYSTEMS: 12 point ROS reviewed with patient. Pertinent positives mentioned above. Otherwise negative. PHYSICAL EXAM: GENERAL: alert, weak, awake oriented x 3 HEENT: EOMI, Sclera non icteric, moist mucosa NECK: Supple, no JVD, trachea midline LUNGS: Clear breath sounds bilaterally. No wheezes HEART: Regular rate and rhythm. Normal S1 and S2, without murmurs ABD: Abdomen soft, nontender. Bowel sounds present EXT: No clubbing cyanosis or edema NEURO: Alert and oriented to person, follows commands Vital Signs (last 8hr) Date Time Temp Pulse Resp B/P (MAP) Pulse Ox O2 Delivery O2 Flow Rate FiO2 05/11/25 13:09 96 19 N/Cannula Low lpm 2.0 28 05/11/25 13:09 96 19 05/11/25 11:50 97.9 85 18 155/93 94 Nasal Cannula 2.0 05/11/25 09:36 85 19 N/Cannula Low lpm 2.0 28 05/11/25 09:27 85 19 05/11/25 08:00 92 Nasal Cannula* 2 28 05/11/25 08:00 97.3 81 20 151/92 92 Nasal Cannula 2.0 05/11/25 06:49 82 19 N/Cannula Low lpm 2.0 28 05/11/25 06:45 82 18 LABS: Hematology Labs: Test 05/10/25 05:29 Range/Units White Blood Count 10.3 # 4.8-10.8 K/uL Red Blood Count 3.51 L 4.00-5.50 MIL/uL Hemoglobin 9.9 L 12.0-16.0 g/dL Hematocrit 29.4 L 36-48 % Mean Corpuscular Volume 83.8 79-99 fL Mean Corpuscular Hemoglobin 28.2 27.0-33.0 pg Mean Corpuscular Hemoglobin Concent 33.7 32.0-36.0 g/dL Red Cell Distribution Width 14.4 11.0-15.5 % Platelet Count 359 130-400 K/uL Mean Platelet Volume 10.4 7.5-10.5 fL Nucleated Red Blood Cells 0.0 0.0-0.19 % Chemistry Labs: Test 05/10/25 05:29 Range/Units Sodium Level 139 136-145 mmol/L Potassium Level 3.8 3.5-5.1 mmol/L Chloride Level 103 101-111 mmol/L Carbon Dioxide Level 27 21-32 mmol/L Blood Urea Nitrogen 10 7-18 mg/dL Creatinine 0.6 0.5-1.0 mg/dL Glomerular Filtration Rate Calc 108 >90 mL/min Random Glucose 191 H 70-105 mg/dL Total Calcium 8.5 8.5-10.1 mg/dL Magnesium Level 2.10 1.80-2.40 mg/dL Total Bilirubin 0.5 # 0.2-1.0 mg/dL Aspartate Amino Transf (AST/SGOT) 25 10-37 U/L Alanine Aminotransferase (ALT/SGPT) 52 12-78 U/L Alkaline Phosphatase 130 50-136 U/L Total Protein 6.6 6.0-8.3 g/dL Albumin 2.3 L 3.5-5.0 g/dL DIAGNOSTICS / RADIOLOGY RESULTS: na PLAN NEURO: Minimize central acting medications as possible. Maintain fall precautions, adequate lighting during the day PULMONARY: Supplemental 02 as needed. Maintain aspiration precautions at all times CARDIOVASCULAR: Follow hemodynamics. Vital signs per facility protocol GI & NUTRITION: Continue with nutritional support. Continue stool softeners and laxatives as needed. KIDNEYS & ELECTROLYTES: Strict monitoring of intake, output and overall fluid balance. Avoid nephrotoxic medications to the extent possible. Medications to be dosed according to renal function. Monitor electrolytes and replace as needed ENDOCRINE: Maintain blood glucose between 100-180 at all times. Hypoglycemia protocol in place INFECTIOUS DISEASE: Trend temperature, WBC and procalcitonin level Follow cultures, deescalate antibiotics as soon as possible. Panculture if new onset fever ONCOLOGY/HEMATOLOGY/COAGULATION: Monitor for s/s of bleeding Monitor hemoglobin, coagulation studies as needed SKIN: Pressure ulcer prevention per facility protocol Specialty mattress ORTHO/REHAB: Continue PT/OT Prophylaxis: Continue GI and DVT prophylaxis Code Status: Full Resuscitation Disposition: Per primary team Other: Case discussed with supervising physician plan of care agreed upon ANCA MACIAS May 11, 2025 14:11
--- NOTE | 2025-05-11 16:58 | HMCSR ---
APPROVED REPORT EXAM: Two-dimensional and M-mode echocardiogram with Doppler and color Doppler. INDICATION ICD: Tachycardia R00.0 2D Dimensions RVDd3.8 cmLVEF(%)56.7 (>50%)LVED Vol(simp.)120.0 mL IVSd0.8 (0.7-1.1cm)FS(%)30 %LVES Vol(simp.)48.0 mL LVDd5.0 (3.8-5.6cm)LA (2D)3.8 (1.6-4.0cm)LVEF(%, simp.)60 % PWd0.9 (0.7-1.1cm)Ao Root(2D)2.9 (2.0-3.7cm)LA ESV INDEX (BP)29.75 mL/m2 LVDs3.5 (2.5-4.0cm)LVOT diam1.7 (1.8-2.4cm) IVC diam1.8 cm Deformation Strain Apical 4-21.1 % Apical 2-22.0 % Apical 3-22.2 % Global Strain-21.8 % M-Mode Dimensions LA (MM)4.1 (1.6-4.0cm) Ao Root(MM)2.4 (2.0-3.7cm) Aortic Valve AoV Vmax1.7 m/Lazaro Peak GR12.0 mmHgLVOT Vmax1.4 m/s AoV VTI0.4 mAo Mean GR6.6 mmHgLVOT VTI0.30 m ROBERT (VMAX)1.88 cm2AVA (VTI) 1.9 cm2 Mitral Valve MV E Andx042.3 cm/sDECEL Nxhf783 ms MV A Uhff319.4 cm/sP 1/2 T37 ms E/A ratio1.1MVA (PHT)5.9 cm2 TDI E/E' Medial6.5E/E' Lateral7.4 Medial E' Peak V16.97 cm/sLateral E' Peak V14.83 cm/s Pulmonary Valve PV Vmax1.2 m/sPV VTI0.24 mPV Mean GR3.3 mmHg PV Peak GR5.9 mmHg Tricuspid Valve TR Vmax2.9 m/sRVSP32.9 mmHg TR Peak GR32.9 mmHg Left Ventricle The left ventricle is normal size. Normal wall motion There is normal left ventricular wall thickness . LVEF is 55-60%. The left ventricular diastolic function is normal. Right Ventricle The right ventricle is normal size. The right ventricular systolic function is normal. Atria The left atrium size is normal. The right atrium size is normal. Aortic Valve The aortic valve is normal in structure. No aortic regurgitation is present. There is no aortic valvu lar stenosis. Mitral Valve The mitral valve is normal in structure. Mitral regurgitation is trace to mild. There is no mitral va lve stenosis. Tricuspid Valve The tricuspid valve is normal in structure. There is mild tricuspid valve regurgitation noted. Pulmonic Valve The pulmonary valve is normal in structure. There is no pulmonic valvular regurgitation. Great Vessels The aortic root is normal in size. The IVC is normal in size and collapses >50% with inspiration. Pericardium There is no pericardial effusion. Conclusion LVEF is 55-60%. There is normal left ventricular wall thickness. The left ventricle is normal size. The left ventricular diastolic function is normal. Mitral regurgitation is trace to mild. There is no pericardial effusion. Mild pulmonary hypertension Study quality was adequate
[2025-05-11] MEDS: DOXYCYCLINE 100MG+NS 250ML 250 ML IV SCH (19:24)
--- NOTE | 2025-05-11 21:15 | NUR ---
SHIFT ASSESSMENT PT IS AWAKE, ALERT AND ORIENTED X3, DENIES SOB AT THIS TIME, BUT COMPLAINT OF SLIGHT ITCHING TO HANDS ONLY BUT NONE TO SOLES OF FEET EARLIER IN THE DAY, WILL CONTINUE TO MONITOR FOR FURTHER ITCHING. PLAN OF CARE DISCUSSED, CALL [facility]SON WITHIN REACH
[2025-05-12] VITALS (10 sets, daily range): BP systolic 148–155; BP diastolic 80–97; PULSE 78–148; RESP 17–30; TEMP 97.9–98.2; O2SAT 89–96
--- NOTE | 2025-05-12 00:50 | NUR ---
NURSING OBSERVATION/ ITCHING PT WOKE UP AND WAS COMPLAINING OF ITCHING TO SOLES OF HANDS AND FEET. NO RASH OR HIVES NOTED TO ANY PART OF BODY. T/C PLACED TO OPHTHALMIC TECHNICIAN APPRENTICE CATALYST IMPREGNATOR FOR HOSPITALIST.
--- NOTE | 2025-05-12 00:50 | NUR ---
CALL BACK PAGE RETURNED, INFORMED Wood MURPHY TOOL DRAWING CHECKER FOR HOSPITALIST OF PT'S SYMPTOMS, ORDERS RECEIVED.
[2025-05-12 04:45] LABS: NUCLEATED RED BLOOD CELLS 0.0 % (0.0-0.19); PLATELET COUNT (AUTO) 359.0 K/uL (130-400); RED BLOOD CELL COUNT(AUTO) 3.37 MIL/uL (4.00-5.50); RED CELL DISTRIBUTION WIDTH 14.6 % (11.0-15.5); WHITE BLOOD COUNT (AUTO) 10.0 K/uL (4.8-10.8)
[2025-05-12 05:03] LABS: ASPARTATE AMINOTRANSFERASE 30.0 U/L (10-37); CREATININE 0.7 mg/dL (0.5-1.0); GLOMERULAR FILTR. RATE CALC 104.0 mL/min (>90); GLUCOSE,RANDOM 116.0 mg/dL (70-105); SODIUM SERUM 141.0 mmol/L (136-145); TOTAL PROTEIN, SERUM 6.1 g/dL (6.0-8.3); UREA NITROGEN, BLOOD 19.0 mg/dL (7-18)
[2025-05-12] MEDS ORDERED: METO25 PO (11:01)
[2025-05-12] MEDS ORDERED: LEVO750T90 PO (11:01)
--- NOTE | 2025-05-12 11:04 | DS ---
Discharge Summary Hospital Course Summary: HISTORY OF THE PRESENT ILLNESS This is a 50-year-old female with no pertinent medical history who presents to the ED for complaints of dry cough , fever and shortness of breaths which started two days ago. Patient states her condition started one week ago having symptoms of diarrhea, and headache which she went to see her PCP and was prescribed with Zofran, omeprazole, nystatin and Augmentin q.12 for seven days and patient reports she started feeling better however two days ago he noticed having dry cough, fever and chills last night and shortness of breath today.Patient reports she went to a free standing ER and was given steroids shot and IVF and IV antibiotic and recommended for admission and as per patient she refused and decided to go home .On their way home she still feel the same and daughter convinced her to get admitted so she decided to come to this ER facility ,thus prompted this admission. Seen and examined patient in the ER awake,alert and coherent ,in no apparent distress.Patient denies chest pain,palpitation,nausea,vomiting and abdominal pain. Latest vital signs temperature 97.3, heart rate 89, blood pressure 115/60 saturation 94% on room air. Labs: WBC 18, hemoglobin 11, hematocrit 33 platelet count 261. Chloride 99, random glucose 196 lactic acid 1.3 the rest of the chemistries normal. Chest x-ray result revealed multifocal pneumonia in the left lung and mid to lower right lung. While in the ER patient received albuterol and Rocephin 1 g IV. We will admit patient for further medical management. HOSPITAL COURSE 05/07 This is a 50-year-old female with no pertinent medical history who presents to the ED for complaints of dry cough , fever and shortness of breaths which started two days ago. Patient states her condition started one week ago having symptoms of diarrhea, and headache which she went to see her PCP and was prescribed with Zofran, omeprazole, nystatin and Augmentin q.12 for seven days and patient reports she started feeling better however two days ago he noticed having dry cough, fever and chills last night and shortness of breath today.Patient reports she went to a free standing ER and was given steroids shot and IVF and IV antibiotic and recommended for admission and as per patient she refused and decided to go home .On their way home she still feel the same and daughter convinced her to get admitted so she decided to come to this ER facility ,thus prompted this admission. Seen and examined patient in the ER awake,alert and coherent ,in no apparent distress.Patient denies chest pain,palpitation,nausea,vomiting and abdominal pain. Latest vital signs temperature 97.3, heart rate 89, blood pressure 115/60 saturation 94% on room air. Labs: WBC 18, hemoglobin 11, hematocrit 33 platelet count 261. Chloride 99, random glucose 196 lactic acid 1.3 the rest of the chemistries normal. Chest x-ray result revealed multifocal pneumonia in the left lung and mid to lower right lung. While in the ER patient received albuterol and Rocephin 1 g IV. We will admit patient for further medical management. 05/08 patient was seen by nurse practitioner and physician during rounding in room 313. Patient's chest x-ray came back positive for pneumonia. Patient continues to be on Rocephin and azithromycin. WBC is trending down today is 14.2. UA was positive for leukocytosis. We are pending blood urine and sputum culture at this moment. We will continue to monitor patient in the meantime. A.m. labs] 05/09 patient remains admitted to the medical floor, comfortably in bed, alert oriented x3, getting IV antibiotics, no acute events overnight. Blood pressure 144/84, heart rate of 102, afebrile, saturating normal on room air. Denied chest pain, dry nonproductive cough. WBC remains elevated 18.9, hemoglobin 8.5, hematocrit 28.0, platelet count 341. Potassium 3.1, magnesium 2.2. We will do stool occult blood, iron panel, we will check for influenza type B and B, SARS antigen, rapid strep, GI panel, Legionella and Streptococcus antigen, pulmonary and Infectious Disease consulted, CT chest without contrast requested. Start metoprolol 12.5 mg p.o. b.i.d.. 05/10 patient remains admitted to the medical floor, blood pressure 147/89, heart rate of 98, afebrile, saturating normal on room air. Hemoglobin 9.9, hematocrit 29.4, WBC down to normal 10.3, platelet count 359. Sodium 139, potassium 3.8, BUN of 10, creatinine 0.6, random glucose level 191, hemoglobin A1c 5.9. Iron level of 52. Sputum culture no organisms seen. Blood cultures no growth after 48 hours. Urine culture negative. CT chest without contrast showing severe multifocal pneumoniae in the bilateral lungs, trace pleural effusions bilaterally, reactive mediastinal lymphadenopathy, trace pericardial effusion, mild cardiomegaly. We will continue the patient on Rocephin and azithromycin IV. Continue the patient on Solu-Medrol IV. Continue to follow Pulmonary input and recommendation. ID input noted and appreciated, continue current IV antibioti cs. Pending Legionella and Streptococcus antigen. Follow serology to include influenza type a and B, SARS antigen as well as rapid strep A. We will request echocardiogram to evaluate pericardial effusion. Continue the patient on metoprolol tartrate 12.5 mg p.o. b.i.d.. Follow 12 lead EKG. During my visit patient comfortably in bed, alert oriented x3, getting IV fluids and IV antibiotics. She denies chest pain, shortness shortness for breath, no cough, no nausea, no vomiting, no abdominal pain. Plan of care discussed in detail, all questions answered, agreed and understood the information provided. 05/11 patient remains admitted to the medical floor, BP 151/92, heart rate controlled at 81, afebrile, saturating 96% on 2 L nasal cannula. Leukocytosis resolved, WBC at 10.3, hemoglobin stable 9.9, hematocrit 29.4, platelet count 359. CMP is unremarkable. Serology test to include influenza type a and B are negative, SARS antigen negative, group a strep negative. Stool occult blood negative. Blood cultures negative. Sputum culture normal oropharyngeal jesus. Echocardiogram pending. Infectious disease input noted and appreciated, continue the patient on broad- spectrum antibiotic with Rocephin and azithromycin. Continue Solu-Medrol IV. Continue to follow Pulmonary input and recommendations, echocardiogram pending to evaluate ejection fraction, and to evaluate for small pericardial effusion. We will request Physical therapy to evaluate the patient. Increase metoprolol tartrate to 25 mg p.o. b.i.d.. During my visit the patient is comfortably in bed, alert oriented x3, case discussed with the RN, no acute events overnight, getting IV antibiotics during my visit, no chest pain, shortness shortness for breath, no nausea, no vomiting. 05/12 today the patient is hemodynamically stable, alert oriented x3, no acute events overnight, case discussed with the RN, 6 minute walk done yesterday, patient desaturated to the low 80s, discussed with case management who will arrange for home oxygen. Results of urine Legionella antigen positive, antibiotics switch to Levaquin 750 mg IV daily. The patient denied chest pain, shortness shortness for breath, no cough, no nausea, no vomiting, no abdominal pain, she would like to be discharged home today. Echocardiogram done, reported as follows: LVEF is 55-60%. There is normal left ventricular wall thickness. The left ventricle is normal size. The left ventricular diastolic function is normal. Mitral regurgitation is trace to mild. There is no pericardial effusion. Mild pulmonary hypertension Study quality was adequate PHYSICAL EXAM GENERAL APPEARANCE: The patient is awake, alert, and oriented, in no acute cardiopulmonary distress. NEUROLOGICAL: Cranial nerves II-XII grossly intact. Motor is 5/5 in bilateral upper and lower extremities proximal to distal. No sensory deficits. HEENT: Face is symmetric. Pupils are equal and reactive. Extraocular movements are intact. NECK: Supple. No JVD. No thyromegaly. No submental, submandibular, pre- /postauricular, occipital or supraclavicular lymphadenopathy. CHEST: Normal chest expansion. No Telemetry. LUNGS: Absence of any rales, rhonchi or any wheezing. CARDIOVASCULAR: Regular. S1 and S2 normal. No appreciable rubs, murmurs or gallops. ABDOMEN: Soft, nontender, and nondistended. There is no rebound, voluntary guarding, or rigidity. : Deferred. No Leija. EXTREMITIES: Non-edematous and not cyanotic. No clubbing. Good capillary refill. SKIN: No skin breakdown. 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 She was advised to return to the hospital if her condition changes, patient agreed with plan and understood the information provided. Time spent arranging discharge: 31-60 minutes TUYET THIBODEAUX MD May 12, 2025 11:04
--- NOTE | 2025-05-12 13:05 | NUR ---
Discharge Planning: Spoke to patient regarding 02 sats of 83% yesterday. [facility] respiratory therapist told her he would complete 6-minute walk today, that she only walked 2 steps yesterday. States she feels she is doing well without 02, currently on room air. Pending 6-minute walk today.
--- NOTE | 2025-05-12 15:22 | NUR ---
Discharge Planning: As per new 6-minute walk results, patient does not require 02 for home. Plan is for discharge home today.
--- NOTE | 2025-05-12 17:29 | PN ---
INFECTIOUS DISEASE PROGRESS NOTE Date of Service: May 12, 2025 SUBJECTIVE: Patient was seen and examined at bedside in room 313. Patient is awake, alert and oriented x3. The Legionella pneumo AG came back positive and patient has been started on levofloxacin IV. Patient was updated with this finding. No fever, temperature is 97.9. From Infectious Disease standpoint patient can be discharged on levofloxacin p.o. when ready to discharge. PHYSICAL EXAM EYES: Anicteric. Pupils equal and reactive. HENT: No oral thrush seen, moist Oral mucosa. NECK: Supple, no JVD or thyromegaly. LUNGS: No rales, no rhonchi. Nonproductive cough. Short of breaths on exertion. CARDIOVASCULAR: S1, S2 regular. No murmur heard. ABDOMEN: Soft, non tender, bowel sounds present, no organomegaly. CENTRAL NERVOUS SYSTEM: Awake, alert, oriented x 3. SKIN: No rashes, no swelling. LYMPHATICS: No peripheral lymphadenopathy. MUSCULOSKELETAL: No joint swelling, erythema or tenderness. EXTREMITIES: No cyanosis or clubbing. BACK: No deformity, no pressure ulcer. GENITOURINARY: No dysuria or hematuria. Vital Sign (Last 12 Hours) 05/12/25 05/12/25 05/12/25 05/12/25 07:33 07:34 08:00 08:00 Temp 97.9 Pulse 84 84 93 Resp 18 18 19 B/P (MAP) 155/97 Pulse Ox 94 O2 Delivery N/A Room Air Room Air* Room Air O2 Flow Rate 0 FiO2 21 21 05/12/25 05/12/25 05/12/25 05/12/25 11:00 11:01 12:46 14:48 Pulse 91 91 111 97 148 Resp 18 18 20 18 30 O2 Delivery N/A Room Air FiO2 21 21 21 05/12/25 14:48 Pulse 97 Resp 18 O2 Delivery N/A Room Air FiO2 21 Intake & Output (last 24hrs) 05/11/25 05/11/25 05/12/25 15:00 23:00 07:00 Intake Total 1800 ml 250.0 ml Output Total 15 ml Balance 1785 ml 250.0 ml LABS: Laboratory: Test 05/12/25 04:36 Range/Units White Blood Count 10.0 4.8-10.8 K/uL Red Blood Count 3.37 L 4.00-5.50 MIL/uL Hemoglobin 9.4 L 12.0-16.0 g/dL Hematocrit 29.2 L 36-48 % Mean Corpuscular Volume 86.6 79-99 fL Mean Corpuscular Hemoglobin 27.9 27.0-33.0 pg Mean Corpuscular Hemoglobin Concent 32.2 32.0-36.0 g/dL Red Cell Distribution Width 14.6 11.0-15.5 % Platelet Count 359 130-400 K/uL Mean Platelet Volume 9.6 7.5-10.5 fL Nucleated Red Blood Cells 0.0 0.0-0.19 % Sodium Level 141 136-145 mmol/L Potassium Level 3.7 3.5-5.1 mmol/L Chloride Level 105 101-111 mmol/L Carbon Dioxide Level 28 21-32 mmol/L Blood Urea Nitrogen 19 H 7-18 mg/dL Creatinine 0.7 0.5-1.0 mg/dL Glomerular Filtration Rate Calc 104 >90 mL/min Random Glucose 116 H 70-105 mg/dL Total Calcium 8.3 L 8.5-10.1 mg/dL Magnesium Level 2.00 1.80-2.40 mg/dL Total Bilirubin 0.4 0.2-1.0 mg/dL Aspartate Amino Transf (AST/SGOT) 30 10-37 U/L Alanine Aminotransferase (ALT/SGPT) 74 12-78 U/L Alkaline Phosphatase 99 50-136 U/L Total Protein 6.1 6.0-8.3 g/dL Albumin 2.2 L 3.5-5.0 g/dL DIAGNOSTICS / RADIOLOGY: PATIENT: MOSES GARRIDO ACCT: [id number] LOC: [facility] U: [id number] AGE/SX: 50/F ROOM: [facility] RE05/07/[address]: CHAPO DICKINSON MD : 1975 BED: 1 DIS: STATUS: ADM IN TLOC: SPEC: [id number] MARITZA: 05/11/25 STATUS: COMP REQ: [id number] RECD: 05/11/[address] [facility] [address]: TUYET THIBODEAUX MD SOURCE: URINE ENTR: 05/11/25-[address]: BEN CLEMENTS MD SPDES: CLEAN CAT ALOK,DRAKE BUCKNER MD, MD, JAIRO P MD ORDERED: YAALLA AG Procedure Result Tres Date-Time LEGIONELLA PNEUMO AG URINE Final 05/12/25-1041 MRL PREVIOUSLY NOTIFIED ON 05/11/25 [facility] RESULT: POSITIVE REFERENCE RANGE = NEGATIVE RESULT: L. PNEUMOPHILIA SEROGROUP 1 ANTIGEN DETECTED. Test(s) performed by: [facility] [address] [place] [address] ASSESSMENT: Multifocal pneumonia with Legionella. Sepsis. Leukocytosis, resolving. Urinary tract infection. PLAN: Patient has been started on levofloxacin IV. From Infectious Disease standpoint patient can be discharged on levofloxacin p.o. when ready to discharge. This case was reviewed and discussed with my supervising physician and the above assessment and plan was formulated and agreed upon. ATTESTATION BY PHYSICIAN I have seen and examined the patient. I reviewed the documentation, medical decision making, and treatment plan as noted by the mid-level provider above. I agree with the findings and plan of care. BEN CLEMENTS MD, MIRTA L [facility] May 12, 2025 17:28
--- NOTE | 2025-05-12 18:37 | PN ---
[facility] PROGRESS NOTE Date Patient Seen: May 12, 2025 Time of Visit: 1135 Supervising Physician: Dr. Cormier Inpatient Consults: BIS PROBLEM LIST: Acute hypoxic respiratory failure requiring supplemental oxygen via nasal [place] Community-acquired multifocal pneumonia Acute leukocytosis Acute normocytic normochromic anemia INTERVAL HISTORY: 05/10 patient was seen and examined at bedside with family present. Patient is awake alert able to answer simple questions appropriately. Patient denies any chest pain report shortness of breadth has slowly improved. Patient remains on room air tolerating well. Patient denies any nausea vomiting or abdominal pain. At this time we will decrease patient's Solu-Medrol to 40 mg b.i.d.. Patient to continue on IV antibiotics. Patient will need a repeat CT scan without contrast within 4-6 weeks to to make sure infiltrates have resolved if repeat CT chest still showing significant infiltrates patient will need further workup and possibly lung biopsy 05/11 patient was seen and examined at bedside with family present. Patient has been put on oxygen via nasal cannula. As per primary nurse patient was desatting yesterday night. Patient to continue with FiO2 as needed and c ontinued titrate as tolerated. Patient to continue with antibiotics and steroids. Patient currently pending echocardiogram. Patient currently pending echocardiogram we will follow up results. Dispo per primary team 05/12 was seen and examined at bedside family present. The patient has been weaned off oxygen. At time of visit has no specific complaints. As per primary nurse no acute events to be reported. Patient to continue on IV antibiotics and IV steroids at this time. We will need a 6 minute walk prior to discharge. Plan summary Patient will need a repeat CT scan without contrast within 4-6 weeks to to make sure infiltrates have resolved if repeat CT chest still showing significant infiltrates patient will need further workup and possibly lung biopsy Obtain sputum culture, pending Obtain flu swab , pending Continue Solu-Medrol 40 mg b.i.d. Continue IV antibiotics per ID recommendations 6 minute walk prior to discharge Continue with FiO2 as needed Continue to actively titrate FiO2 as tolerated Rest of the care per primary team REVIEW OF SYSTEMS: 12 point ROS reviewed with patient. Pertinent positives mentioned above. Otherwise negative. PHYSICAL EXAM: GENERAL: alert, weak, awake oriented x 3 HEENT: EOMI, Sclera non icteric, moist mucosa NECK: Supple, no JVD, trachea midline LUNGS: Clear breath sounds bilaterally. No wheezes HEART: Regular rate and rhythm. Normal S1 and S2, without murmurs ABD: Abdomen soft, nontender. Bowel sounds present EXT: No clubbing cyanosis or edema NEURO: Alert and oriented to person, follows commands Vital Signs (last 8hr) Date Time Temp Pulse Resp B/P (MAP) Pulse Ox O2 Delivery O2 Flow Rate FiO2 05/12/25 14:48 97 18 N/A Room Air 21 05/12/25 14:48 97 18 05/12/25 12:46 111 20 21 148 30 21 05/12/25 11:01 91 18 05/12/25 11:00 91 18 N/A Room Air 21 LABS: Hematology Labs: Test 05/12/25 04:36 Range/Units White Blood Count 10.0 4.8-10.8 K/uL Red Blood Count 3.37 L 4.00-5.50 MIL/uL Hemoglobin 9.4 L 12.0-16.0 g/dL Hematocrit 29.2 L 36-48 % Mean Corpuscular Volume 86.6 79-99 fL Mean Corpuscular Hemoglobin 27.9 27.0-33.0 pg Mean Corpuscular Hemoglobin Concent 32.2 32.0-36.0 g/dL Red Cell Distribution Width 14.6 11.0-15.5 % Platelet Count 359 130-400 K/uL Mean Platelet Volume 9.6 7.5-10.5 fL Nucleated Red Blood Cells 0.0 0.0-0.19 % Chemistry Labs: Test 05/12/25 04:36 Range/Units Sodium Level 141 136-145 mmol/L Potassium Level 3.7 3.5-5.1 mmol/L Chloride Level 105 101-111 mmol/L Carbon Dioxide Level 28 21-32 mmol/L Blood Urea Nitrogen 19 H 7-18 mg/dL Creatinine 0.7 0.5-1.0 mg/dL Glomerular Filtration Rate Calc 104 >90 mL/min Random Glucose 116 H 70-105 mg/dL Total Calcium 8.3 L 8.5-10.1 mg/dL Magnesium Level 2.00 1.80-2.40 mg/dL Total Bilirubin 0.4 0.2-1.0 mg/dL Aspartate Amino Transf (AST/SGOT) 30 10-37 U/L Alanine Aminotransferase (ALT/SGPT) 74 12-78 U/L Alkaline Phosphatase 99 50-136 U/L Total Protein 6.1 6.0-8.3 g/dL Albumin 2.2 L 3.5-5.0 g/dL DIAGNOSTICS / RADIOLOGY RESULTS: na PLAN NEURO: Minimize central acting medications as possible. Maintain fall precautions, adequate lighting during the day PULMONARY: Supplemental 02 as needed. Maintain aspiration precautions at all times CARDIOVASCULAR: Follow hemodynamics. Vital signs per facility protocol GI & NUTRITION: Continue with nutritional support. Continue stool softeners and laxatives as needed. KIDNEYS & ELECTROLYTES: Strict monitoring of intake, output and overall fluid balance. Avoid nephrotoxic medications to the extent possible. Medications to be dosed according to renal function. Monitor electrolytes and replace as needed ENDOCRINE: Maintain blood glucose between 100-180 at all times. Hypoglycemia protocol in place INFECTIOUS DISEASE: Trend temperature, WBC and procalcitonin level Follow cultures, deescalate antibiotics as soon as possible. Panculture if new onset fever ONCOLOGY/HEMATOLOGY/COAGULATION: Monitor for s/s of bleeding Monitor hemoglobin, coagulation studies as needed SKIN: Pressure ulcer prevention per facility protocol Specialty mattress ORTHO/REHAB: Continue PT/OT Prophylaxis: Continue GI and DVT prophylaxis Code Status: Full Resuscitation Disposition: Per primary team Other: Case discussed with supervising physician plan of care agreed upon ANCA MACIASP May 12, 2025 18:37
[2025-05-13 16:11] LABS: C DIFFICILE TOXIN A/B Not Detected (Not Detected); ENTEROAGGREGATIVE ECOLI Not Detected (Not Detected); GIARDIA LAMBLIA Not Detected (Not Detected); PLESIOMONAS SHIGELOIDES Not Detected (Not Detected); SAPOVIRUS Not Detected (Not Detected); SHIGELLA/ENTEROINVASIVE E COLI Not Detected (Not Detected); VIBRIO Not Detected (Not Detected); VIBRIO CHOLERAE Not Detected (Not Detected)
== END 2025-05-12 17:00 | disposition home or self-care (01) | DRG 871 ==
LOC: EDH 17:50 → EDHIP 19:11 → 3CH 20:41
PROVIDERS: ADMIT Hospitalist; ATTEND Hospitalist
DX: A41.9 Sepsis, unspecified organism (principal); J15.69 Pneumonia due to other Gram-negative bacteria; J96.01 Acute respiratory failure with hypoxia; E87.1 Hypo-osmolality and hyponatremia; N39.0 Urinary tract infection, site not specified; D64.9 Anemia, unspecified; E66.9 Obesity, unspecified; I10 Essential (primary) hypertension; I34.0 Nonrheumatic mitral (valve) insufficiency; I48.91 Unspecified atrial fibrillation; R73.9 Hyperglycemia, unspecified; Z68.39 Body mass index [BMI] 39.0-39.9, adult
CPT/HCPCS: 36415; 71045; 71250; 80048; 80053; 81001; 82270; 83036; 83540; 83550; 83605; 83735; 85025; 85027; 87040; 87071; 87086; 87205; 87426; 87449; 87507; 87804; 87880; 93005; 93306; 93356; 94640; 94664; 94760; 96374; 99285; G0378; J0456; J0696; J1200; J1956; J2919; J3490

== ENCOUNTER → 2025-09-05 | Outpatient (CLI) | payer BC ==
[~2025-09-05] MED LIST: LEVO750T90 PO; METO25 PO
--- NOTE | 2025-09-06 10:42 | HMCIMG ---
EXAM: CT Chest without IV contrast. CLINICAL HISTORY: Pneumonia TECHNIQUE: Axial computed tomography images of the chest without intravenous contrast. COMPARISON: CT ??? CT Chest w/o Contrast ??? 05/09/25 10:56 EDT FINDINGS: LUNGS: Interval resolution of bilateral pulmonary consolidation. No pulmonary mass. The lungs appear essentially clear. PLEURAL SPACES: No pneumothorax evident. No pleural effusions. HEART: No cardiomegaly. No significant pericardial effusion. LYMPH NODES: No lymphadenopathy is evident. UPPER ABDOMEN: Post-cholecystectomy status. The upper abdominal solid organs are unremarkable. BONES: No acute osseous abnormality. Old compression fracture involving the body of the T9 vertebra with approximately 20% reduction in vertebral body height???stable since last scan. IMPRESSION: Interval resolution of bilateral pulmonary consolidation. No acute intrathoracic abnormality. /[place]
== END | disposition home or self-care (01) ==
LOC: RAH 11:26
PROVIDERS: ATTEND Internal Medicine
DX: J18.9 Pneumonia, unspecified organism (principal); Z90.49 Acquired absence of other specified parts of digestive tract
CPT/HCPCS: 71250